=== PATIENT | female | born 2000 | race Caucasian/White ===

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

== ENCOUNTER → 2019-01-06 16:07 | Outpatient (CLI) | payer MEDICAID, SELFPAY ==
[2019-01-09 13:19] LABS: Neisseria gonorrhoeae, NAA Negative (Negative)
== END ==
PROVIDERS: Visit Provider Nurse Practitioner Obstetrics & Gynecology
DX: Z34.90 Encounter for supervision of normal pregnancy, unspecified, unspecified trimester (principal)
CPT/HCPCS: 87491; 87591

== ENCOUNTER → 2019-01-09 14:17 | Outpatient (CLI) | payer MEDICAID, SELFPAY ==
[2019-01-09 14:48] LABS: Basophils % 0.3 % (0.1-2.0); Eosinophils # 0.1 K/mm3 (0.0-0.4); Eosinophils % 1.1 % (0.1-12.0); Hematocrit 38.5 % (37.0-47.0); Hemoglobin 12.4 g/dL (12.2-16.2); Lymphocytes # 1.5 K/mm3 (0.7-4.5); Lymphocytes % 16.6 % (10-50); Mean Corpuscular HGB Conc 32.3 g/dL (31.8-35.4); Mean Corpuscular Hemoglobin 27.7 pg (27.0-31.2); Mean Corpuscular Volume 85.7 fl (81-99); Mean Platelet Volume 7.7 fl (7.4-10.4); Monocytes # 0.5 K/mm3 (0.1-1.0); Monocytes % 5.8 % (1.7-9.3); Neutrophils # 6.9 K/mm3 (1.8-7.8); Neutrophils % 76.3 % (37.0-80.0); Platelet Count 278 K/mm3 (142-424); Red Cell Distribution Width 12.6 % (11.5-17.5); White Blood Count 9.1 K/mm3 (4.5-13.0)
[2019-01-11 17:10] LABS: Rapid Plasma Reagin Ab Titer Non Reactive (NonRea<1:1)
[2019-01-11 18:08] LABS: HIV Screen 4th Generation wRfx Non Reactive (Non Reactive)
[2019-01-14 07:09] LABS: Hepatitis B Surface Antigen Negative (Negative); Hepatitis C Antibody <0.1 s/co ratio (0.0-0.9)
[2019-01-14 07:11] LABS: Rubella Antibodies, IgG 1.82 index (Immune >0.99)
== END ==
PROVIDERS: Visit Provider Nurse Practitioner Obstetrics & Gynecology
DX: Z34.90 Encounter for supervision of normal pregnancy, unspecified, unspecified trimester (principal)
CPT/HCPCS: 36415; 85025; 86592; 86703; 86762; 86850; 87340; 87380; G0432

== ENCOUNTER → 2019-01-12 14:05 | Outpatient (CLI) | payer MEDICAID, SELFPAY ==
--- NOTE | 2019-01-12 14:09 | US_ITS ---
US OB transvaginal HISTORY: ITS.REASON: US OB Dates ORDERING PHYSICIAN: Aron Hill MD PATIENT AGE: 18 years COMPARISON: None FINDINGS: An intrauterine gestational sac is present with a pole with a crown-rump length of 2.03cm correlating to gestational age of 8w5d. heart tones are present with an FHR of 174 bpm's. Yolk sac is noted. The amnion and chorion have not yet fused. Adnexa: 4 cm right corpus luteum cyst. IMPRESSION: Live intrauterine gestation at 8 weeks 5 days as described above. Estimated due date by Ultrasound is 08/19/2019 4 cm right corpus luteum cyst
== END ==
PROVIDERS: PCP Internal Medicine Adolescent Medicine; Visit Provider Nurse Practitioner Obstetrics & Gynecology
DX: O26.841 Uterine size-date discrepancy, first trimester (principal)
CPT/HCPCS: 76817

== ENCOUNTER → 2019-04-01 13:06 | Outpatient (CLI) | payer MEDICAID, SELFPAY ==
--- NOTE | 2019-04-01 13:08 | US_ITS ---
PROCEDURE: US OB /MATERNAL DETAIL CLINICAL INDICATION: US OB Complete COMPARISON: OBTV US OB transvaginal from 01/12/2019 FINDINGS: Single viable intrauterine gestation. Cephalic position. Placenta: Posteriorplacenta grade 1. There is average amount fluid. The cervix appears satisfactory. Closed and measuring 4 cm in length. Complete survey performed and was unremarkable on the submitted images as in PACS. No discrete anomalies identified on survey imaging by technologist. Active fetus. Three-vessel cord with satisfactory umbilical cord insertion. 4- chamber heart noted. Survey of brain & ventricles Unremarkable. Face and neck survey unremarkable. Diaphragm and chest views unremarkable. Abdomen: Both kidneys noted and unremarkable. Stomach noted and satisfactory. Spine: Survey of the spine satisfactory with no anomalies identified nor imaged. Both arms and legs noted. Amniotic Fluid: Adequate. Maternal adnexa: No significant findings. Measurements: Average ultrasound age 20 week. Gestational Age 20 week Estimated due date by ultrasound age 0208/19/2019. Estimated weight 322.1 ggrams. BPD = 20 weeks 2 days OFD = 20 weeks 0 days HC = 19 weeks 3 days AC = 20 weeks 0 days FL = 20 weeks 1 day Growth Percentile= 34 percent% Heart Rate = 144 bpm Cerebellum = 20 weeks 0 days Humerus = 19 weeks 5 days HC/AC is 1.13 CI is 0.82 FL/BPD is 0.68 FL/AC is 0.22 IMPRESSION: Single live intrauterine gestation which is in cephalic presentation with an average ultrasound age of 20 weeks and 0 days. All parameters correlate with no obvious anomalies. Please see above for detail. Dictated by: Franklyn Yuen MD 04/02/2019 06:07 Electronically signed by Franklyn Yuen MD in [place] 04/02/2019 06:07
== END ==
PROVIDERS: PCP Internal Medicine Adolescent Medicine; Visit Provider Nurse Practitioner Obstetrics & Gynecology
DX: Z36.0 Encounter for antenatal screening for chromosomal anomalies (principal)
CPT/HCPCS: 76811

== ENCOUNTER → 2019-04-08 16:02 | Outpatient (CLI) | payer SELFPAY ==
[2019-04-08 21:46] LABS: Alanine Aminotransferase 24 U/L (12-78); Albumin/Globulin Ratio 0.9 (1.1-1.8); Alkaline Phosphatase 56 U/L (46-116); Anion Gap 16.3 mEq/L (5-15); Aspartate Amino Transferase 15 U/L (15-37); Bilirubin,Total 0.2 mg/dL (0.2-1.0); Blood Urea Nitrogen 14 mg/dL (7-18); Calcium 8.1 mg/dL (8.5-10.1); Carbon Dioxide 23 mmol/L (21.0-32.0); Chloride 102 mmol/L (98-107); Creatinine,Serum 0.55 mg/dL (0.55-1.02); Estimated Glomerular Filt Rate 142 ml/min (>60); GFR (African American) 172 ML/MIN (>60); Globulin 3.5 gm/dl (1.3-3.2); Glucose 107 mg/dL (74-106); Potassium 4.3 mmoL/L (3.5-5.1); Sodium 137 mmol/L (136-145); Total Protein,Serum 6.5 gm/dL (6.4-8.2)
== END ==
PROVIDERS: Visit Provider Nurse Practitioner Obstetrics & Gynecology
DX: Z34.90 Encounter for supervision of normal pregnancy, unspecified, unspecified trimester (principal); Z3A.21 21 weeks gestation of pregnancy
CPT/HCPCS: 36415; 80053

== ENCOUNTER 2019-05-12 14:21 | Outpatient (CLI) | payer OTHER, SELFPAY ==
[2019-05-12 14:29] VITALS: BMI 26.2
[2019-05-12 14:43] VITALS: BP 128/75; PULSE 110; RESP 18; O2SAT 99; BMI 26.2
[2019-05-12 15:14] LABS: Appearance,Urine SL CLOUDY (Clear); Bilirubin,Urine Negative (Negative); Blood, Urine Negative (Negative); Color,Urine YELLOW (Yellow); Glucose,Urine (UA) TRACE (Negative); Ketones,Urine Negative (Negative); Leukocyte Esterase,Urine Negative (Negative); Microscopic, Urine URINE MICROSCOPIC (MICROSCOPIC); Nitrate,Urine POSITIVE (Negative); Protein,Urine Negative (Negative); Specific Gravity, Urine 1.025 (1.005-1.030); Urobilinogen,Urine 0.2 EU/dl (0.2)
[2019-05-12 15:32] LABS: Bacteria,Urine 4+ /lpf
[2019-05-12 15:51] LABS: Amphetamine/Metha Screen,Urine Negative ng/mL (<1000); Barbiturates Screen,Urine Negative ng/mL (<200); Benzodiazepines Screen,Urine Negative ng/mL (<200); Cannabinoid Screen,Urine Negative ng/mL (<50); Cocaine Screen,Urine Negative ng/mL (<300); Methadone Screen,Urine Negative ng/mL (<300); Opiate Screen,Urine Negative ng/mL (<300); Phencyclidine Screen,Urine Negative ng/mL (<25)
== END 2019-05-12 15:45 | disposition home or self-care (01) ==
LOC: OBOUT 14:23 → OB 14:24
PROVIDERS: PCP Internal Medicine Adolescent Medicine; Visit Provider Nurse Practitioner Obstetrics & Gynecology
DX: O26.892 Other specified pregnancy related conditions, second trimester (principal); Z3A.26 26 weeks gestation of pregnancy; R10.2 Pelvic and perineal pain
CPT/HCPCS: 59025; 80305; 81001; 87086; 87088; 87186

== ENCOUNTER → 2019-05-30 08:42 | Outpatient (CLI) | payer OTHER, SELFPAY ==
[2019-05-30 09:19] LABS: Glucose,Fasting 118 mg/dL (60-105)
[2019-05-30 10:54] LABS: Glucose 1 Hour 148 mg/dL (74-106)
== END ==
PROVIDERS: Visit Provider Nurse Practitioner Obstetrics & Gynecology
DX: Z34.90 Encounter for supervision of normal pregnancy, unspecified, unspecified trimester (principal)
CPT/HCPCS: 36415; 82951

== ENCOUNTER → 2019-06-11 09:00 | Outpatient (CLI) | payer OTHER, SELFPAY ==
[2019-06-11 09:29] LABS: Glucose,Fasting 90 mg/dL (60-105)
[2019-06-11 11:09] LABS: Glucose 1 Hour 177 mg/dL (74-106)
[2019-06-11 12:20] LABS: Glucose 2 Hour 151 mg/dL (74-106)
[2019-06-11 13:02] LABS: Glucose 3 Hour 116 mg/dL (74-106)
== END ==
PROVIDERS: Visit Provider Nurse Practitioner Obstetrics & Gynecology
DX: O99.814 Abnormal glucose complicating childbirth (principal)
CPT/HCPCS: 36415; 82951

== ENCOUNTER → 2019-06-22 16:19 | Outpatient (CLI) | payer OTHER, SELFPAY | PROVIDERS: Visit Provider Nurse Practitioner Obstetrics & Gynecology | DX: N39.0 Urinary tract infection, site not specified (principal) | CPT/HCPCS: 87086; 87088; 87186 ==

== ENCOUNTER 2019-07-06 11:58 | Outpatient (CLI) | payer OTHER, SELFPAY ==
[2019-07-06 12:08] VITALS: BP 112/71; PULSE 114; RESP 18; TEMP 36.6; O2SAT 99; BMI 27.1
[2019-07-06 12:36] LABS: Microscopic, Urine URINE MICROSCOPIC (MICROSCOPIC)
[2019-07-06 12:44] LABS: Appearance,Urine CLEAR (Clear); Bilirubin,Urine Negative (Negative); Blood, Urine 2+ (Negative); Color,Urine YELLOW (Yellow); Glucose,Urine (UA) Negative (Negative); Ketones,Urine Negative (Negative); Leukocyte Esterase,Urine Negative (Negative); Nitrate,Urine Negative (Negative); PH,Urine 6.5 (5.0-8.5); Protein,Urine 1+ (Negative); Specific Gravity, Urine 1.025 (1.005-1.030)
[2019-07-06 12:52] LABS: Amphetamine/Metha Screen,Urine Negative ng/mL (<1000); Barbiturates Screen,Urine Negative ng/mL (<200); Benzodiazepines Screen,Urine Negative ng/mL (<200); Cannabinoid Screen,Urine Negative ng/mL (<50); Cocaine Screen,Urine Negative ng/mL (<300); Methadone Screen,Urine Negative ng/mL (<300); Opiate Screen,Urine Negative ng/mL (<300); Phencyclidine Screen,Urine Negative ng/mL (<25)
[2019-07-06 13:11] LABS: Bacteria,Urine 4+ /lpf
== END 2019-07-06 13:45 | disposition home or self-care (01) ==
LOC: OBOUT 11:59 → OB 12:00
PROVIDERS: PCP Internal Medicine Adolescent Medicine; Visit Provider Nurse Practitioner Obstetrics & Gynecology
DX: O36.8130 Decreased fetal movements, third trimester, not applicable or unspecified (principal); Z3A.33 33 weeks gestation of pregnancy; R10.9 Unspecified abdominal pain; R19.7 Diarrhea, unspecified
CPT/HCPCS: 59025; 80305; 81001; 87086; 87088; 87186; 96360

== ENCOUNTER → 2019-07-13 17:44 | Outpatient (CLI) | payer OTHER, SELFPAY | PROVIDERS: Visit Provider Nurse Practitioner Obstetrics & Gynecology | DX: O23.43 Unspecified infection of urinary tract in pregnancy, third trimester (principal) | CPT/HCPCS: 87086; 87088; 87186 ==

== ENCOUNTER 2019-07-20 19:36 | Outpatient (CLI) | payer OTHER, SELFPAY ==
[2019-07-20 19:43] VITALS: BP 132/74; PULSE 118; RESP 18; TEMP 36.9; O2SAT 99; BMI 26.5
[2019-07-20 20:32] LABS: Microscopic, Urine URINE MICROSCOPIC (MICROSCOPIC)
[2019-07-20 20:42] LABS: Appearance,Urine CLEAR (Clear); Bilirubin,Urine Negative (Negative); Blood, Urine 2+ (Negative); Color,Urine YELLOW (Yellow); Glucose,Urine (UA) 2+ (Negative); Ketones,Urine Negative (Negative); Leukocyte Esterase,Urine 1+ (Negative); Nitrate,Urine Negative (Negative); Protein,Urine 2+ (Negative); Specific Gravity, Urine 1.015 (1.005-1.030)
[2019-07-20 20:51] LABS: Amphetamine/Metha Screen,Urine Negative ng/mL (<1000); Barbiturates Screen,Urine Negative ng/mL (<200); Benzodiazepines Screen,Urine Negative ng/mL (<200); Cannabinoid Screen,Urine Negative ng/mL (<50); Cocaine Screen,Urine Negative ng/mL (<300); Methadone Screen,Urine Negative ng/mL (<300); Opiate Screen,Urine Negative ng/mL (<300); Phencyclidine Screen,Urine Negative ng/mL (<25)
[2019-07-20 20:59] LABS: Bacteria,Urine Trace /lpf; RBC,Urine Occasional #/hpf (0-3); Squamous Epithelial Cell,Urine 20-50 #/hpf (0-5)
== END 2019-07-20 21:02 | disposition home or self-care (01) ==
LOC: OBOUT 19:40 → OB 19:40
PROVIDERS: PCP Nurse Practitioner Obstetrics & Gynecology; Visit Provider Obstetrics & Gynecology
DX: O47.03 False labor before 37 completed weeks of gestation, third trimester (principal); Z3A.35 35 weeks gestation of pregnancy
CPT/HCPCS: 59025; 80305; 81001; 87086; 87088; 87186; G0463

== ENCOUNTER → 2019-07-22 17:16 | Outpatient (CLI) | payer OTHER, SELFPAY | PROVIDERS: Visit Provider Nurse Practitioner Obstetrics & Gynecology | DX: N39.0 Urinary tract infection, site not specified (principal); Z3A.36 36 weeks gestation of pregnancy; Z34.90 Encounter for supervision of normal pregnancy, unspecified, unspecified trimester | CPT/HCPCS: 86403; 87086; 87088; 87186 ==

== ENCOUNTER 2019-07-22 21:12 | Outpatient (CLI) | payer OTHER, SELFPAY ==
[2019-07-22 21:36] VITALS: BP 118/76; PULSE 115; RESP 18; TEMP 37.1; O2SAT 96; BMI 26.5
[2019-07-22 22:04] LABS: Microscopic, Urine URINE MICROSCOPIC (MICROSCOPIC)
[2019-07-22 22:05] LABS: Appearance,Urine CLEAR (Clear); Bilirubin,Urine Negative (Negative); Blood, Urine TRACE-I (Negative); Color,Urine YELLOW (Yellow); Glucose,Urine (UA) Negative (Negative); Ketones,Urine 2+ (Negative); Leukocyte Esterase,Urine 2+ (Negative); Nitrate,Urine Negative (Negative); Protein,Urine 1+ (Negative); Specific Gravity, Urine 1.025 (1.005-1.030)
[2019-07-22 22:12] LABS: Bacteria,Urine 4+ /lpf
[2019-07-22 22:14] LABS: Amphetamine/Metha Screen,Urine Negative ng/mL (<1000); Barbiturates Screen,Urine Negative ng/mL (<200); Benzodiazepines Screen,Urine Negative ng/mL (<200); Cannabinoid Screen,Urine Negative ng/mL (<50); Cocaine Screen,Urine Negative ng/mL (<300); Methadone Screen,Urine Negative ng/mL (<300); Opiate Screen,Urine Negative ng/mL (<300); Phencyclidine Screen,Urine Negative ng/mL (<25)
[2019-07-22 22:23] LABS: Strep Scrn Group A (Rapid) Negative (Negative)
== END 2019-07-22 23:44 | disposition home or self-care (01) ==
LOC: OBOUT 21:14 → OB 21:14
PROVIDERS: PCP Nurse Practitioner Obstetrics & Gynecology; Visit Provider Obstetrics & Gynecology
DX: O26.893 Other specified pregnancy related conditions, third trimester (principal); Z3A.36 36 weeks gestation of pregnancy; R50.9 Fever, unspecified
CPT/HCPCS: 59025; 80305; 81001; 87275; 87276; 87430; 96365; 96367; G0463

== ENCOUNTER → 2019-08-03 12:41 | Outpatient (CLI) | payer OTHER, SELFPAY ==
--- NOTE | 2019-08-03 12:45 | US_ITS ---
PROCEDURE: US OB BIOPHYSICAL PROFILE CLINICAL INDICATION: US OB BPP Growth- Breech TECHNIQUE: FINDINGS: The following parameters are obtained: Average ultrasound age is Average 37weeks 5days Estimated due date by ultrasound is 08/19/2019. Estimated weight is 3,304g. This is 60 a percentile BPD: 37 weeks 6 days OFD: 37 weeks 6 days HC: 36 weeks 6 days AC: 38 weeks 0 days FL: 38 weeks 0 days heart rate: 133bpm bpm. HC/AC: 0.95 Cephalic index: 0.82 FL/BPD: 0.8 FL/AC: 0.22 Amniotic fluid index: 17.28cm Qualitative AFV: 2 breathing movements: 2 Gross body movements: 2 Tone: 2 Biophysical profile score: 8 No obvious anomalies evident. Placenta: Posterior and grade 1 IMPRESSION: There is a single live fetus which is in breech presentation with an average ultrasound age of 37 weeks 5 days. Estimated weight is 3304 g which is 60 a percentile. Biophysical profile is 8 of 8 with normal amniotic fluid index. Please see above for detail Dictated by: Franklyn Yuen MD 08/03/2019 15:28 Electronically signed by Franklyn Yuen MD in [place] 08/03/2019 15:28
== END ==
PROVIDERS: PCP Internal Medicine Adolescent Medicine; Visit Provider Nurse Practitioner Obstetrics & Gynecology
DX: O32.1XX0 Maternal care for breech presentation, not applicable or unspecified (principal)
CPT/HCPCS: 76816; 76819

== ENCOUNTER 2019-08-13 05:31 | Inpatient (IN) ==
[2019-08-13 06:10] LABS: Microscopic, Urine URINE MICROSCOPIC (MICROSCOPIC)
[2019-08-13 06:16] LABS: Basophils % 0.2 % (0.1-2.0); Eosinophils # 0.1 K/mm3 (0.0-0.4); Eosinophils % 1.1 % (0.1-12.0); Hematocrit 27.3 % (37.0-47.0); Lymphocytes # 1.9 K/mm3 (0.7-4.5); Lymphocytes % 23.6 % (10-50); Mean Corpuscular Volume 72.7 fl (81-99); Monocytes # 0.7 K/mm3 (0.1-1.0); Neutrophils # 5.5 K/mm3 (1.8-7.8); Neutrophils % 67.2 % (37.0-80.0); Platelet Count 229 K/mm3 (142-424); Red Blood Count 3.76 M/mm3 (4.20-5.40); Red Cell Distribution Width 15.9 % (11.5-17.5); White Blood Count 8.2 K/mm3 (4.5-13.0)
[2019-08-13 06:19] LABS: Hemoglobin 7.9 g/dL (12.2-16.2)
[2019-08-13 06:24] LABS: Anion Gap 14.7 mEq/L (5-15); Calcium 8.5 mg/dL (8.5-10.1)
[2019-08-13 06:25] LABS: Amphetamine/Metha Screen,Urine Negative ng/mL (<1000); Barbiturates Screen,Urine Negative ng/mL (<200); Benzodiazepines Screen,Urine Negative ng/mL (<200); Cannabinoid Screen,Urine Negative ng/mL (<50); Cocaine Screen,Urine Negative ng/mL (<300); Methadone Screen,Urine Negative ng/mL (<300); Opiate Screen,Urine Negative ng/mL (<300); Phencyclidine Screen,Urine Negative ng/mL (<25)
--- NOTE | 2019-08-13 07:11 | Progress Note ---
[facility] Anesthesia Checklist - Patient Identification Patient Identification: Arm Band, Verbal (Name & ) - Structural Data Admitted From: Home Planned Operative Procedure/s: c section Consent for Planned Operative Procedure(s) Verified: Yes - NPO Status Verified Time NPO: 00:00 - Additional verifications Patient : No Anesthesia Reactions: No Hx Blood Transfusions: No Blood Transfusion Reaction: No Cephalosporin Allergy: No Previous Colonoscopy: No - Cardiovascular Assessment Heart Sounds: S1 & S2 Pulse Strength: Baseline Pulse Rhythm: Regular Peripheral Edema: No - Airway Assessment C-Spine Mobility Assessed: Yes TMJ Mobility Assessed: Yes Dentition: Good Dentition - Neurological Assessment Level of Consciousness: Awake, Alert, Appropriate Hx Seizures: No Numbness or tingling in extremities: No - Anesthesia Plan Anesthesia Risk discussed: Yes Anesthesia Plan: Verified ASA Class: II Anesthesia Type: Spinal [facility] History I have reviewed the patient's past medical history: Yes *Have you ever received a pneumonia vaccine?: No *Have you received a flu vaccine this season?: Yes Anesthesia experience/problems:: none Other Surgeries: Yes: No Previous Surgery. No: Amputation: No Fractures: No - *Social History Smoking Status: Never smoker Alcohol Intake: never Substance Use Type: denies use *Occupational Status:: unemployed *Travel in the last 8 weeks: None Family Hx:: No significant family history Para: 0
[2019-08-13 07:31] LABS: Appearance,Urine CLEAR (Clear); Bilirubin,Urine Negative (Negative); Blood, Urine Negative (Negative); Color,Urine YELLOW (Yellow); Glucose,Urine (UA) Negative (Negative); Ketones,Urine Negative (Negative); Leukocyte Esterase,Urine Negative (Negative); Protein,Urine Negative (Negative); Specific Gravity, Urine 1.025 (1.005-1.030); Urobilinogen,Urine 0.2 EU/dl (0.2)
[2019-08-13 07:36] LABS: Bacteria,Urine Trace /lpf; RBC,Urine Occasional #/hpf (0-3); WBC,Urine Occasional #/hpf (0-3)
--- NOTE | 2019-08-13 08:38 | Operative Note ---
Date of procedure: 08/13/19 Pre-op Diagnosis:: Term , breech presentation Post-op Diagnosis:: Term , breech presentation, uterine atony Procedure performed:: Primary lower segment transverse section and B-colby suture Surgeon:: Aron Hill MD ORACLE APPLICATION CONSULTANT:: Evelio He Anesthesia: spinal Estimated blood loss (mL): 1,000 Clinical Note:: She is a 19-year-old 1 para 0 at 39 2 weeks gestational age. She has been followed for a breech presentation and as result of that was offered primary lower segment transverse section at term. Operative findings:: She delivered a liveborn male child at 7:57 AM on the morning of August 13, 2019. Baby had Apgars of 9 at 1 minute 9 at 5 minutes. He was in the cody breech presentation. Ovaries and tubes were normal. Her uterus is quite boggy post delivery and we ended up doing a B. Colby suture. Operative note:: She was taken to the operating room where spinal anesthesia was found be adequate. She was prepped and draped in normal sterile fashion in the supine position with a leftward tilt. A Lopez catheter was in the bladder. A Pfannenstiel skin incision was made with knife then carried through to the underlying layer of fascia with cautery. The fascia was opened in the midline with cautery and extended laterally using Montgomery scissors. Marisol clamps were applied to the superior aspect of the fascial incision which was tented up and the underlying rectus muscles dissected off using cautery. The Marisol clamps were then applied to the inferior aspect of the fascial incision which in a similar fashion was tented up and the underlying rectus muscles dissected off using cautery. The rectus muscles were then in the midline, the peritoneum identified, and entered sharply with Metzenbaum scissors. This incision was then extended superiorly and inferiorly with cautery. We had good visualization of the bladder inferiorly. The bladder peritoneum was then opened in the midline and extended laterally using Metzenbaum scissors. A bladder flap was created digitally. Transverse incision was made through the uterine muscle to the amnion. This incision was then extended laterally using fingers traction. The amnion was entered sharply with knife. There was clear amniotic fluid. The infant's breech was then delivered atraumatically. This was followed by the shoulders and the rest of the infant's body atraumatically. The oropharynx and nasopharynx were bulb suctioned. The infant was then handed off to Dr. Rocha who assigned Apgars of 9 at 1 minute and 9 at 5 minutes. We then obtained cord blood as well as cord pH. The pH was not available due to clotting of the blood in the tube. Using gentle traction on the cord and countertraction on the fundus I was able to easily deliver the placenta intact. It had a normal three-vessel cord. The uterus was then cleared of clots and debris . The uterine incision was then closed using running 0 Vicryl suture in a locked fashion. A second layer of the same suture was used to imbricate the first layer. There were multiple areas of bleeding along the lower uterine incision and interrupted [id number]-[id number] sutures were used here to obtain excellent hemostasis. The bladder peritoneum was then closed using running 2-0 Vicryl suture in a locked fashion. The gutters and cul-de-sac were then cleared of clots and debris . The uterus is found to be quite boggy so we elected to perform a B-colby suture. Using a #1 Vicryl suture with a large needle I took a bite anterior. This was then passed over top of the uterus and 2 bites were taken posteriorly. It was then passed again over anteriorly and another bite was taken anteriorly. The suture was then cinched down and tied. Once again hemostasis was assured. The gutters and cul-de-sac were then cleared of clots and debris. The uterus was then returned to the abdominal cavity. The peritoneum was grasped with Ping clamps and closed using running 2-0 Vicryl suture. The rectus muscles were then reapproximated using running 0 Vicryl suture. The fascia was closed using running #1 Vicryl suture. The subcutaneous tissues were then irrigated with warm water followed by closure Frederic's fascia using running 2-0 Monocryl suture. The skin was closed with cherrie. I then cleaned the skin with Hibiclens. Sterile dressings were applied. She tolerated the procedure well and was taken to the recovery room in excellent condition. All sponges minute and needle counts were correct. Estimate a blood loss was approximately 1000 mL. Her hemoglobin prior to surgery was 7.9 and as a result of that we will go ahead and transfuse her 2 units of blood in the recovery room since she had significant blood loss. Condition: stable Disposition: PACU Specimens:: Products of conception Complications:: Uterine atony
--- NOTE | 2019-08-13 08:45 | Progress Note ---
[facility] Anesthesia Record Part I Intake, IV Amount: 2,000 Estimated blood loss (mL): 1,000 Urine output (mL): 200 Blood Products used (#): none Blood Pressure: 128/76 SaO2: 100 Pulse Rate: 68 Respiratory Rate: 20 Temperature: 97.6 F Patient is:: Awake, Stable Stable to PACU at:: 08:39
--- NOTE | 2019-08-13 10:26 | Progress Note ---
[facility] Anesthesia Record Part II Discharge Time: 09:09 Destination: Obstetric Gynecology Dept PACU nurse assessment reviewed?: Yes Patient Condition:: Good Anesthesia Complications:: None Swallowing reflex intact?: Yes Cyanosis?: No Blood Pressure: 146/83 Pulse Rate: 70 Temperature: 97.8 F Mental Status: Alert & Oriented Pain level:: 3 Nausea and/or vomitting:: None Intake, IV Amount: 250
[2019-08-13 13:24] LABS: Hematocrit 28.5 % (37.0-47.0)
[2019-08-13 13:30] LABS: Hemoglobin 8.8 g/dL (12.2-16.2)
[2019-08-13 16:24] LABS: Hematocrit 28.4 % (37.0-47.0); Hemoglobin 8.8 g/dL (12.2-16.2)
[2019-08-14 07:27] LABS: Basophils % 0.1 % (0.1-2.0); Eosinophils # 0.1 K/mm3 (0.0-0.4); Eosinophils % 0.4 % (0.1-12.0); Hematocrit 28.8 % (37.0-47.0); Hemoglobin 8.7 g/dL (12.2-16.2); Lymphocytes # 1.8 K/mm3 (0.7-4.5); Lymphocytes % 12.6 % (10-50); Mean Corpuscular HGB Conc 30.2 g/dL (31.8-35.4); Mean Corpuscular Volume 74.9 fl (81-99); Mean Platelet Volume 10.1 fl (7.4-10.4); Monocytes # 1.2 K/mm3 (0.1-1.0); Monocytes % 8.2 % (1.7-9.3); Neutrophils % 78.6 % (37.0-80.0); Platelet Count 181 K/mm3 (142-424); Red Blood Count 3.84 M/mm3 (4.20-5.40); Red Cell Distribution Width 16.8 % (11.5-17.5)
--- NOTE | 2019-08-14 11:57 | Progress Note ---
Internal Medicine - PN: Subj *Date: 08/14/19 *Time: 11:53 Interval history: She is doing well this morning. She received 2 units of blood yesterday. Her hemoglobin has improved significantly. She denies any shortness of breath or dizziness. She is breast-feeding. Her lochia is normal. Exam Vital signs and Labs for Last 24 Hours: Temp Pulse Resp BP Pulse Ox 98.1 F 75 18 128/80 99 08/13/19 16:30 08/13/19 16:30 08/13/19 16:30 08/13/19 16:30 08/13/19 16:30 Laboratory Results - last 24 hr 08/13/19 05:55: Crossmatch ([facility]) See Detail 08/13/19 13:13: Hgb 8.8 L D, Hct 28.5 L 08/13/19 16:05: Hgb 8.8 L, Hct 28.4 L 08/14/19 07:20: WBC 14.0 H D, RBC 3.84 L, Hgb 8.7 L, Hct 28.8 L, MCV 74.9 L, MCH 22.6 L, MCHC 30.2 L, RDW 16.8, Plt Count 181, MPV 10.1, Neut % (Auto) 78.6, Ly mph % (Auto) 12.6, [place] % (Auto) 8.2, Eos % (Auto) 0.4, Baso % (Auto) 0.1, Neut # (Auto) 11.0 H, Lymph # (Auto) 1.8, [place] # (Auto) 1.2 H, Eos # (Auto) 0.1, Baso # (Auto) 0.0 I & O for Last 24 hours: Intake & Output 08/11/19 08/12/19 08/13/19 08/14/19 11:59 11:59 11:59 11:59 Intake Total 2500 / 2500 Output Total 200 / 200 600 / 600 Balance 2300 / 2300 -600 / -600 Weight 158 lb - *Routine HEENT Exam Head: Present: normocephalic Eye: Present: EOMI, PERRL ENT: Present: mucous membranes moist Assessment and Plan (1) Delivery by section for breech presentation Current visit: Yes Status: Acute Category: Medical Code(s): O32.1XX0 - Maternal care for breech presentation, not applicable or unspecified (2) Anemia, antepartum Current visit: Yes Status: Acute Category: Medical Code(s): O99.019 - Anemia complicating , unspecified trimester (3) Uterine atony Current visit: Yes Status: Acute Category: Medical Code(s): O62.2 - Other uterine inertia - Assessment and plan all Dx Assessment and Plan for all problems:: She continues to do well. We will send her home in 48 hours. She is doing well. She will see Dr. Rob over the next couple of days since I am going to be out of town. We will plan her discharge for 48 hours from now.
--- NOTE | 2019-08-14 12:00 | Discharge Summary ---
General - General Admission date:: 08/13/19 Discharge date: 08/16/19 HPI HPI: She is a 19-year-old 1 para 0 at 39 weeks gestational age. She was brought in for section for breech presentation. Hospital Course Hospital Course: On August 13, 2019 she underwent a primary lower segment transverse section for cody breech presentation. She delivered a liveborn male child with Apgars of 9 at 1 minute and 9 at 5 minutes. He weighed 8 pounds 7 ounces and was 19-1/2 inches long. He was in the cody breech presentation. Prior to surgery it was noted that her hemoglobin was only 7.9. She has not been taking her iron tablets throughout the . As result of that we elected to type and cross her for 2 units. Intraoperatively she had significant blood loss and we elected to give HER-2 units of blood postoperatively. She has now raised her hemoglobin to 8.7. She feels well. She is breast-feeding. She will be discharged home to follow-up with me in approximately 2 weeks time. She was given a prescription for ferrous sulfate to take twice daily and a prescription for Percocet 5/325 number 20 tablets. She will continue with her breast-feeding. Her condition on discharge is stable improved. Objective Vital signs: Temp Pulse Resp BP Pulse Ox 98.1 F 75 18 128/80 99 08/13/19 16:30 08/13/19 16:30 08/13/19 16:30 08/13/19 16:30 08/13/19 16:30 no acute distress - *Routine HEENT Exam Head: Present: normocephalic Results Labs on day of discharge: Labs from last 24 hours 08/14/19 08/13/19 08/13/19 07:20 16:05 13:13 WBC 14.0 H D RBC 3.84 L Hgb 8.7 L 8.8 L 8.8 L D Hct 28.8 L 28.4 L 28.5 L MCV 74.9 L MCH 22.6 L MCHC 30.2 L RDW 16.8 Plt Count 181 MPV 10.1 Neut % (Auto) 78.6 Lymph % (Auto) 12.6 [place] % (Auto) 8.2 Eos % (Auto) 0.4 Baso % (Auto) 0.1 Neut # (Auto) 11.0 H Lymph # (Auto) 1.8 [place] # (Auto) 1.2 H Eos # (Auto) 0.1 Baso # (Auto) 0.0 Crossmatch ([facility]) 08/13/19 05:55 WBC RBC Hgb Hct MCV MCH MCHC RDW Plt Count MPV Neut % (Auto) Lymph % (Auto) [place] % (Auto) Eos % (Auto) Baso % (Auto) Neut # (Auto) Lymph # (Auto) [place] # (Auto) Eos # (Auto) Baso # (Auto) Crossmatch ([facility]) See Detail DS: Diagnosis - Discharge Diagnosis (1) Delivery by section for breech presentation Status: Acute (2) Anemia, antepartum Status: Acute (3) Uterine atony Status: Acute Discharge Plan - Patient Discharge Instructions ACTIVITY: No heavy lifting DIET: continue same diet - Follow up Plan Disposition: Home, Self-Fpc Medications: Home Medications Medication Instructions Recorded Confirmed Type Famotidine 10 mg PO DAILYP PRN 08/13/19 08/13/19 History Ferrous Sulfate [Ferrous Sulfate 325 mg PO BID #60 tab 08/14/19 Rx 325mg Tablet] Oxycodone HCl/Acetaminophen 1 tab PO Q4H PRN #20 tablet 08/14/19 Rx [Percocet 5/325mg tablet] Prescriptions/Medication Reconciliation: New Oxycodone HCl/Acetaminophen [Percocet 5/325mg tablet] 1 tab PO Q4H PRN #20 tablet PRN Reason: Severe Pain Ferrous Sulfate [Ferrous Sulfate 325mg Tablet] 325 mg PO BID #60 tab Continued Famotidine 10 mg PO DAILYP PRN PRN Reason: Acid Reflux - Problem Reconciliation Problems Reviewed?: Yes
--- NOTE | 2019-08-15 09:41 | Progress Note ---
Internal Medicine - PN: Subj *Date: 08/15/19 *Time: 09:38 Interval history: POD #2 primary CS Delivery complicated by severe preoperative anemia and EBL 1000 Transfused 2 units PRBCs and feeling well Post-transfusion Hgb 8.7 Tolerating regular diet, ambulating and voiding without difficulty No unusual complaints Exam Vital signs and Labs for Last 24 Hours: Temp Pulse Resp BP Pulse Ox 98.1 F 76 18 116/75 98 08/14/19 12:00 08/14/19 12:00 08/14/19 12:00 08/14/19 12:00 08/14/19 12:00 I & O for Last 24 hours: Intake & Output 08/12/19 08/13/19 08/14/19 08/15/19 11:59 11:59 11:59 11:59 Intake Total 2500 / 2500 Output Total 200 / 200 600 / 600 Balance 2300 / 2300 -600 / -600 Weight 158 lb Narrative: CONSTITUTIONAL: no acute distress HEENT: mucous membranes moist PULMONARY: breathing unlabored without audible wheezes CV: no tachycardia or visible JVD; normal LE peripheral pulses ABD: soft, ND; appropriately tender but no rebound/guarding : fundus firm at/below umbilicus SKIN: incision well approximated with no drainage, erythema or induration EXT: 1+ edema LEs NEURO: alert/oriented, no altered mental status PSYCH: appropriate mood and demeanor without anxiety/depression Assessment and Plan (1) Delivery by section for breech presentation Current visit: Yes Status: Acute Category: Medical Code(s): O32.1XX0 - Maternal care for breech presentation, not applicable or unspecified (2) Anemia, antepartum Current visit: Yes Status: Acute Category: Medical Code(s): O99.019 - Anemia complicating , unspecified trimester (3) Uterine atony Current visit: Yes Status: Acute Category: Medical Code(s): O62.2 - Other uterine inertia - Assessment and plan all Dx Assessment and Plan for all problems:: Continue routine postop/ care Continue FeSO4 supplementation Anticipate discharge home tomorrow
--- NOTE | 2019-08-15 12:33 | Pharmacy Consult Notes ---
[facility] Pharmacy VTE Monitoring - Patient Demographics Admission date: 08/13/19 Report Date: 08/15/19 Time: 12:33 Allergies/Adverse Reactions: Patient Allergies chlorpheniramine Allergy (Mild, Verified 08/13/19 06:33) dextromethorphan Allergy (Mild, Verified 08/13/19 06:33) phenylephrine Allergy (Mild, Verified 08/13/19 06:33) Height: 1.6 m Weight: 71.668 kg Patient Problems: Current Active Problems Delivery by section for breech presentation (Acute) Anemia, antepartum (Acute) Uterine atony (Acute) - VTE Risk Labs: VTE Related Lab Results Hgb 8.7 g/dL (12.2-16.2) L 08/14/19 07:20 Hct 28.8 % (37.0-47.0) L 08/14/19 07:20 Plt Count 181 K/mm3 (142-424) 08/14/19 07:20 BUN 10 mg/dL (7-18) 08/13/19 05:55 Creatinine 0.58 mg/dL (0.55-1.02) 08/13/19 05:55 Estimated Creat Clear 175 mL/min (50-200) 08/13/19 05:55 - Prophylaxis VTE Prophylaxis Ordered?: Yes Types of VTE Prophylaxis: IPCS Thigh High Location of Applied Device: Bilateral Lower Extremeties
[2019-08-15 13:32] VITALS: BP 127/87
--- NOTE | 2019-08-16 13:48 | Progress Note ---
Internal Medicine - PN: Subj *Date: 08/16/19 *Time: 13:46 Interval history: POD #3 primary CS Ready for discharge today with no new complaints Exam Vital signs and Labs for Last 24 Hours: Temp Pulse Resp BP Pulse Ox 97.6 F 94 H 17 127/87 100 08/15/19 12:30 08/15/19 12:30 08/15/19 12:30 08/15/19 12:30 08/15/19 12:30 I & O for Last 24 hours: Intake & Output 08/14/19 08/15/19 08/16/19 08/17/19 11:59 11:59 11:59 11:59 Output Total 600 / 600 Balance -600 / -600 Narrative: CONSTITUTIONAL: no acute distress HEENT: mucous membranes moist PULMONARY: breathing unlabored without audible wheezes CV: no tachycardia or visible JVD; normal LE peripheral pulses ABD: soft, ND; appropriately tender but no rebound/guarding : fundus firm at/below umbilicus SKIN: incision well approximated with no drainage, erythema or induration EXT: 1+ edema LEs NEURO: alert/oriented, no altered mental status PSYCH: appropriate mood and demeanor without anxiety/depression Assessment and Plan (1) Delivery by section for breech presentation Current visit: Yes Status: Acute Category: Medical Code(s): O32.1XX0 - Maternal care for breech presentation, not applicable or unspecified (2) Anemia, antepartum Current visit: Yes Status: Acute Category: Medical Code(s): O99.019 - Anemia complicating , unspecified trimester (3) Uterine atony Current visit: Yes Status: Acute Category: Medical Code(s): O62.2 - Other uterine inertia - Assessment and plan all Dx Assessment and Plan for all problems:: Discharge home per arrangements made by Dr. Hill F/u with Dr. Hill in office 1-2 wks
== END 2019-08-16 13:25 | disposition home or self-care (01) | DRG 787 ==
LOC: OB 05:31
PROVIDERS: ADMIT Nurse Practitioner Obstetrics & Gynecology; ATTEND Nurse Practitioner Obstetrics & Gynecology
CPT/HCPCS: 36415; 59025; 76815; 80048; 80305; 81001; 85014; 85018; 85025; 86850; 90715; J2405; P9016

== ENCOUNTER 2020-04-27 20:23 | Emergency (ER) | payer OTHER, SELFPAY ==
[2020-04-27 20:24] VITALS: BP 132/80; PULSE 83; RESP 16; TEMP 36.9; O2SAT 99; BMI 20.5
[2020-04-27 20:37] VITALS: BP 132/80; PULSE 83; RESP 16; TEMP 36.9; O2SAT 99; BMI 20.5
--- NOTE | 2020-04-27 21:08 | HMH.EDUTC ---
[facility] [place] Disposition Clinical Impression: Laceration Disposition: Home, Self-Care Condition on Discharge: Good Instructions: How to Care for a Laceration After Repair, Laceration Repair, DI for Laceration Repair -- Simple Additional Instructions: Suture instructions: You have required stitches today. Please read the following instructions so you know how to care for them: 1. Keep wound area dry for the first 24 hours. 2 May clean gently with mild soap and water, after 48 hours to prevent crusting over suture knots. 3. You may shower if your provider gives permission but do not take a bath until the skin is healed.. 4. Never leave a wet dressing or Band-Aid on your stitches as this allows bacteria to reach the area and may cause infection. Band-aids can cause the wound to sweat and not recommended to wear for long periods of time no neosporin after today and leave open to air when at home and cover with loose dressing when out wear finger splint Watch for signs of infection: Increasing redness, tenderness or warmth around the suture site Unusual swelling around the site Appearance of pus around each suture or any red streaks Fever If you develop any of the above signs or symptoms of infection, Follow up with Family Physician immediately 5. Suture removal in __10-12__days 6. Return to [facility] or follow up with family doctor for removal. This can be done by any medical provider during regular hours on Saturday through Saturday, by appointment. Referrals: Evelio Storm MD [Primary Care Provider] - As needed Time of Disposition: 21:11 Medical Decision Making - Juan Carlos Inquiry Pt receiving controlled substance: No Juan Carlos was queried for this patient: No Vital Signs: 04/27/20 20:24 04/27/20 20:37 Temperature 98.4 F 98.4 F Temperature Source Oral Oral Pulse Rate [Right Radial] 83 83 Respiratory Rate 16 16 Blood Pressure [Right Arm] 132/80 132/80 Blood Pressure Mean [Right Arm] 97 97 Blood Pressure Source [Right Arm] Automatic Cuff Automatic Cuff Blood Pressure Position [Right Arm] Sitting Sitting 02 Sat by Pulse Oximetry 99 99 Oxygen Delivery Method Room Air Room Air Orders (Tests/Meds): ED MEDICATIONS Discontinued Medications Generic Name Dose Route Start Last Admin Trade Name Freq PRN Reason Stop Dose Admin Tetanus/Reduced Diphtheria/Acell Pertussis 0.5 ml 04/27/20 20:39 04/27/20 20:53 Tet/Diphth/Pert-Adult 0.5ml Syringe IM 04/27/20 20:40 0.5 ml .ONCE ONE Administration Medical Decision Narrative: Patient unsure of last tetatnus and last documented was in 2010 [facility] [place] HPI - General Stated complaint: AO 04/27 @ 1999 lac to left index finger Time Seen by Provider: 04/27/20 20:45 Mode of Arrival: Ambulatory Source of Information: Patient Limitations: No Limitations Description of Symptoms (Recalled from Triage Doc. by RN): Pt cut left index finger with a knife while cooking dinner. Pt as full range of motion w/ no active bleeding currently. HEENT Symptoms (Recalled from RN notes): No Resp Symptoms (Recalled from RN notes): No Skin Symptoms (Recalled from RN notes): Yes MS Symptoms (Recalled from RN notes): No Functional Status (Recalled from RN notes): wnl - History of Present Illness Provider Complaint: Patient states that she was cooking dinner at home and was using a knife to cut frozen dumplings when the knife slipped and cut her left index finger around her knuckle area States that she is able to move finger easily and denies numbnes or loss of sensation - Related Data Previous Rx's Medication Instructions Recorded Ferrous Sulfate [Ferrous Sulfate 325 mg PO BID #60 tab 08/14/19 325mg Tablet] norethindrone (contraceptive) 0.35 0.35 mg PO DAILY #28 tab 09/30/19 mg tablet Allergies Allergy/AdvReac Type Severity Reaction Status Date / Time chlorpheniramine Allergy Mild Verified 09/30/19 11:03 dextromethorphan Allergy Mild Verified 09/30/19 11:03 phenylephrine Allergy
[2020-04-27 21:18] VITALS: BP 132/80; PULSE 83; RESP 16; TEMP 36.9; O2SAT 99
== END 2020-04-27 21:18 | disposition home or self-care (01) ==
LOC: ER 20:33 → UTC 20:34
PROVIDERS: Emergency Provider Nurse Practitioner; PCP Internal Medicine Adolescent Medicine
DX: S61.211A Laceration without foreign body of left index finger without damage to nail, initial encounter (principal); W26.0XXA Contact with knife, initial encounter; Y92.019 Unspecified place in single-family (private) house as the place of occurrence of the external cause; Z23 Encounter for immunization
CPT/HCPCS: 12001; 90471; 90715; 99201

== ENCOUNTER → 2020-08-29 15:52 | Outpatient (CLI) | payer OTHER, SELFPAY | PROVIDERS: Visit Provider Nurse Practitioner Obstetrics & Gynecology | DX: Z34.90 Encounter for supervision of normal pregnancy, unspecified, unspecified trimester (principal) | CPT/HCPCS: 84702 ==

== ENCOUNTER → 2020-09-06 12:45 | Outpatient (CLI) | payer OTHER, SELFPAY ==
--- NOTE | 2020-09-06 12:46 | US_ITS ---
PROCEDURE: US OB <= 14 WEEKS FETUS CLINICAL INDICATION: US OB before 14 wks for DATES COMPARISON: US US OB LIMITED POSITION from 08/13/2019 FINDINGS: An intrauterine gestational sac is present with a pole with a crown-rump length of 1.88cm correlating to gestational age of 8weeks 3days. heart tones are present with an FHR of 164bpm. Yolk sac is noted. Unremarkable adnexa IMPRESSION: Live IUP at 8 weeks 3 days Estimated due date by Ultrasound is 04/15/2021 Dictated by: Franklyn Yuen MD 09/06/2020 17:59 Franklyn Yuen MD in [place] 09/06/2020 17:59
[2020-09-06 13:38] LABS: Basophils % 0.2 % (0.1-2.0); Eosinophils # 0.1 K/mm3 (0.0-0.4); Eosinophils % 1.4 % (0.1-12.0); Hematocrit 39.8 % (37.0-47.0); Lymphocytes # 1.8 K/mm3 (0.7-4.5); Lymphocytes % 23.5 % (10-50); Mean Corpuscular HGB Conc 32.6 g/dL (31.8-35.4); Mean Corpuscular Hemoglobin 27.2 pg (27.0-31.2); Mean Corpuscular Volume 83.2 fl (81-99); Mean Platelet Volume 7.8 fl (7.4-10.4); Monocytes # 0.4 K/mm3 (0.1-1.0); Monocytes % 5.6 % (1.7-9.3); Neutrophils # 5.2 K/mm3 (1.8-7.8); Neutrophils % 69.2 % (37.0-80.0); Platelet Count 272 K/mm3 (142-424); Red Blood Count 4.79 M/mm3 (4.20-5.40); White Blood Count 7.5 K/mm3 (4.8-10.8)
[2020-09-10 22:36] LABS: HIV Screen 4th Generation wRfx NONREACTIVE; Hepatitis B Surface Antigen NEGATIVE; Hepatitis C Antibody <0.1; Rapid Plasma Reagin Ab Titer NONREACTIVE
== END ==
PROVIDERS: PCP Internal Medicine Adolescent Medicine; Visit Provider Nurse Practitioner Obstetrics & Gynecology
DX: O26.841 Uterine size-date discrepancy, first trimester (principal)
CPT/HCPCS: 36415; 76801; 85025; 86592; 86703; 86762; 86850; 87340; 87380; G0432

== ENCOUNTER → 2020-09-06 13:16 | Outpatient (CLI) | payer OTHER, SELFPAY | PROVIDERS: Visit Provider Nurse Practitioner Obstetrics & Gynecology | DX: Z34.90 Encounter for supervision of normal pregnancy, unspecified, unspecified trimester (principal) | CPT/HCPCS: 36415; 85025; 86592; 86703; 86762; 86850; 87340; 87380; G0432 ==

== ENCOUNTER → 2020-12-01 13:12 | Outpatient (CLI) | payer OTHER, SELFPAY ==
--- NOTE | 2020-12-01 13:12 | US_ITS ---
PROCEDURE: US OB >= 14 WEEKS FETUS CLINICAL INDICATION: 20 week gestation Anatomy exam COMPARISON: US US OB <= 14 WEEKS FETUS from 09/06/2020 FINDINGS: There is a single live intrauterine gestation which is in breech presentation. Cervix is closed and measures 3 cm. Placenta is anterior and grade 1. The amniotic fluid volume appears slightly greater than expected. Follow-up suggested. Complete survey performed and was unremarkable on the submitted images as in PACS. No discrete anomalies identified on survey imaging by technologist. Active fetus. Three-vessel cord with satisfactory umbilical cord insertion. 4- chamber heart noted. Survey of brain & ventricles Unremarkable. Face and neck survey unremarkable. Diaphragm and chest views unremarkable. Abdomen: Both kidneys noted and unremarkable. Stomach noted and satisfactory. Spine: Survey of the spine satisfactory with no anomalies identified nor imaged. Both arms and legs noted. Amniotic Fluid: Adequate. Maternal adnexa: No significant findings. Measurements: Average ultrasound age 21weeks 1day. Gestational Age 20weeks 5days Estimated due date by ultrasound age 1004/12/2021. Estimated weight 399g BPD = 21weeks 4days OFD = 20weeks 5days HC = 20weeks 2days AC = 21weeks 3days FL = 21weeks Growth Percentile= 67Percent% Heart Rate = 139bpm Cerebellum = 20weeks 5days Humerus = 21weeks HC/AC is 1.09 CI is 0.84 FL/BPD is 0.68 FL/AC is 0.21 IMPRESSION: Live IUP with an average ultrasound age of 21 weeks and 4 days. No obvious anomalies. Please see above for detail. Amniotic fluid volume appears slightly greater than expected. Consider follow-up Dictated by: Franklyn Yuen MD 12/02/2020 11:12 Franklyn Yuen MD in OV 12/02/2020 11:12
== END ==
PROVIDERS: PCP Internal Medicine Adolescent Medicine; Visit Provider Nurse Practitioner Obstetrics & Gynecology
DX: Z34.90 Encounter for supervision of normal pregnancy, unspecified, unspecified trimester (principal); Z3A.20 20 weeks gestation of pregnancy
CPT/HCPCS: 76805

== ENCOUNTER → 2021-01-30 08:32 | Outpatient (CLI) | payer OTHER, SELFPAY ==
[2021-01-30 09:25] LABS: Glucose,Fasting 95 mg/dl (74-100)
[2021-01-30 10:40] LABS: Glucose 1 Hour 143 mg/dL (74-100)
[2021-01-31 08:09] LABS: Hepatitis B Surface Antigen Negative (Negative); Hepatitis C Antibody <0.1 s/co ratio (0.0-0.9)
[2021-01-31 08:14] LABS: Rapid Plasma Reagin Ab Titer Non Reactive (NonRea<1:1); Rubella Antibodies, IgG 1.56 index (Immune >0.99)
[2021-01-31 09:26] LABS: HIV Screen 4th Generation wRfx Non Reactive (Non Reactive)
== END ==
PROVIDERS: Visit Provider Nurse Practitioner Obstetrics & Gynecology
DX: Z34.90 Encounter for supervision of normal pregnancy, unspecified, unspecified trimester (principal)
CPT/HCPCS: 36415; 82951; 86592; 86703; 86762; 87340; 87380; G0432

== ENCOUNTER → 2021-03-14 13:51 | Outpatient (CLI) | payer OTHER, SELFPAY ==
--- NOTE | 2021-03-14 13:52 | US_ITS ---
PROCEDURE: US OB BIOPHYSICAL PROFILE CLINICAL INDICATION: LGA TECHNIQUE: FINDINGS: The following parameters are obtained: Average ultrasound age is Average 36weeks Estimated due date by ultrasound is 04/11/2021. Estimated weight is 2,940g. This is 77th percentile BPD: 35weeks 4days OFD: 35weeks 4days HC: 31.2cm AC: 33.3cm FL: 7cm heart rate: 161bpm bpm. HC/AC: 0.94 Cephalic index: 0.79 FL/BPD: 0.81 FL/AC: 0.21 Amniotic fluid index: 19.29cm Qualitative AFV: 2 breathing movements: 2 Gross body movements: 2 Tone: 2 Biophysical profile score: 8 A single live fetus is present in cephalic presentation. heart body motion noted. The cervix is closed measuring 3 cm. The placenta is anterior and grade 1. Heart rate is 161 BPM IMPRESSION: Average ultrasound age is Average 36weeks Estimated due date by ultrasound is 04/11/2021. Estimated weight is 2,940g. This is 77th percentile. Cephalic presentation. NOE 19 cm BPP 8 of 8 Dictated by: Franklyn Yuen MD 03/15/2021 09:47 Franklyn Yuen MD in OV 03/15/2021 09:47
== END ==
PROVIDERS: PCP Internal Medicine Adolescent Medicine; Visit Provider Nurse Practitioner Obstetrics & Gynecology
DX: O36.60X0 Maternal care for excessive fetal growth, unspecified trimester, not applicable or unspecified (principal)
CPT/HCPCS: 76816; 76819

== ENCOUNTER → 2021-03-21 08:00 | Outpatient (CLI) | payer OTHER, SELFPAY | PROVIDERS: Visit Provider Nurse Practitioner Obstetrics & Gynecology | DX: Z34.90 Encounter for supervision of normal pregnancy, unspecified, unspecified trimester (principal); Z3A.36 36 weeks gestation of pregnancy | CPT/HCPCS: 86403 ==

== ENCOUNTER 2021-03-30 11:43 | Outpatient (CLI) | payer OTHER, SELFPAY ==
[2021-03-30 12:00] LABS: Microscopic, Urine URINE MICROSCOPIC (MICROSCOPIC)
[2021-03-30 12:03] LABS: Appearance,Urine CLEAR (Clear); Blood, Urine 3+ (Negative); Color,Urine YELLOW (Yellow); Glucose,Urine (UA) Negative (Negative); Ketones,Urine TRACE (Negative); Leukocyte Esterase,Urine Negative (Negative); Nitrate,Urine Negative (Negative); Protein,Urine TRACE (Negative); Specific Gravity, Urine 1.025 (1.005-1.030); Urobilinogen,Urine 0.2 EU/dl (0.2)
[2021-03-30 12:14] LABS: Bilirubin,Urine 1+ (Negative)
[2021-03-30 12:15] VITALS: BP 113/89; PULSE 110; RESP 20; O2SAT 100; BMI 30.6
[2021-03-30 12:15] LABS: RBC,Urine 20-50 #/hpf (0-3)
[2021-03-30 12:18] LABS: Amphetamine/Metha Screen,Urine Negative ng/ml (<1000); Barbiturates Screen,Urine Negative ng/ml (<200)
[2021-03-30 12:19] LABS: Benzodiazepines Screen,Urine Negative ng/ml (<200)
[2021-03-30 12:20] LABS: Cannabinoid Screen,Urine Negative ng/ml (<50); Cocaine Screen,Urine Negative ng/ml (<300)
[2021-03-30 12:21] LABS: Methadone Screen,Urine Negative ng/ml (<300)
[2021-03-30 12:22] LABS: Opiate Screen,Urine Negative ng/ml (<300); Phencyclidine Screen,Urine Negative ng/ml (<25)
== END 2021-03-30 13:16 | disposition home or self-care (01) ==
LOC: OBOUT 11:44 → OB 11:44
PROVIDERS: PCP Internal Medicine Adolescent Medicine; Visit Provider Nurse Practitioner Obstetrics & Gynecology
DX: O60.03 Preterm labor without delivery, third trimester (principal); Z3A.37 37 weeks gestation of pregnancy
CPT/HCPCS: 59025; 80305; 81001; 96365; G0463

== ENCOUNTER 2021-04-04 04:40 | Outpatient (CLI) | payer OTHER, SELFPAY ==
[2021-04-04 05:04] LABS: Microscopic, Urine URINE MICROSCOPIC (MICROSCOPIC)
[2021-04-04 05:09] LABS: Appearance,Urine CLEAR (Clear); Bilirubin,Urine Negative (Negative); Blood, Urine Negative (Negative); Color,Urine YELLOW (Yellow); Glucose,Urine (UA) Negative (Negative); Ketones,Urine Negative (Negative); Leukocyte Esterase,Urine Negative (Negative); Nitrate,Urine Negative (Negative); Protein,Urine Negative (Negative); Urobilinogen,Urine 0.2 EU/dl (0.2)
[2021-04-04 05:18] VITALS: BP 130/94; PULSE 87; RESP 18; TEMP 36.8; O2SAT 98
[2021-04-04 05:20] LABS: Bacteria,Urine 1+ /lpf
[2021-04-04 05:21] LABS: Amphetamine/Metha Screen,Urine Negative ng/ml (<1000); Barbiturates Screen,Urine Negative ng/ml (<200)
[2021-04-04 05:22] LABS: Benzodiazepines Screen,Urine Negative ng/ml (<200); Cannabinoid Screen,Urine Negative ng/ml (<50)
[2021-04-04 05:23] LABS: Cocaine Screen,Urine Negative ng/ml (<300)
[2021-04-04 05:24] LABS: Methadone Screen,Urine Negative ng/ml (<300); Opiate Screen,Urine Negative ng/ml (<300)
[2021-04-04 05:25] LABS: Phencyclidine Screen,Urine Negative ng/ml (<25)
== END 2021-04-04 06:10 | disposition home or self-care (01) ==
LOC: OBOUT 04:42 → OB 04:43
PROVIDERS: PCP Internal Medicine Adolescent Medicine; Visit Provider Nurse Practitioner Obstetrics & Gynecology
DX: O60.03 Preterm labor without delivery, third trimester (principal); Z3A.38 38 weeks gestation of pregnancy
CPT/HCPCS: 59025; 80305; 81001; G0463

== ENCOUNTER → 2021-04-07 12:49 | Outpatient (CLI) | payer OTHER, SELFPAY | PROVIDERS: Visit Provider Nurse Practitioner Obstetrics & Gynecology | DX: Z34.90 Encounter for supervision of normal pregnancy, unspecified, unspecified trimester (principal) | CPT/HCPCS: C9803; U0003; U0005 ==

== ENCOUNTER 2021-04-08 21:04 | Inpatient (IN) | payer OTHER, SELFPAY ==
[2021-04-08] VITALS (8 sets, daily range): BP systolic 125–160; BP diastolic 75–96; PULSE 76–101; RESP 12–18; TEMP 36.8–37.3; O2SAT 97–99; BMI 30.7
[2021-04-08 20:46] LABS: Basophils % 0.4 % (0.1-2.0); Eosinophils # 0.1 K/mm3 (0.0-0.4); Eosinophils % 1.2 % (0.1-12.0); Hematocrit 39.1 % (37.0-47.0); Hemoglobin 12.9 g/dL (12.2-16.2); Lymphocytes # 2.1 K/mm3 (0.7-4.5); Lymphocytes % 24.4 % (10-50); Mean Corpuscular Hemoglobin 29.7 pg (27.0-31.2); Mean Corpuscular Volume 90.1 fl (81-99); Mean Platelet Volume 10.1 fl (7.4-10.4); Monocytes # 0.6 K/mm3 (0.1-1.0); Monocytes % 6.5 % (1.7-9.3); Neutrophils # 5.8 K/mm3 (1.8-7.8); Neutrophils % 67.6 % (37.0-80.0); Platelet Count 252 K/mm3 (142-424); Red Blood Count 4.34 M/mm3 (4.20-5.40); Red Cell Distribution Width 14.1 % (11.5-17.5); White Blood Count 8.5 K/mm3 (4.8-10.8)
[2021-04-08 21:01] LABS: Anion Gap 11.8 mEq/L (5-15); Blood Urea Nitrogen 10 mg/dl (7-17); Calcium 8.9 mg/dl (8.4-10.2); Carbon Dioxide 19 mmol/L (22.0-30.0); Chloride 106 mmol/L (98-107); Creatinine Clearance Estimated 228 mL/min (50-200); Estimated Glomerular Filt Rate 156 ml/min (>60); GFR (African American) 188 ML/MIN (>60); Glucose 122 mg/dl (74-100); Potassium 3.8 mmoL/L (3.5-5.1); Sodium 133 mmol/L (136-145)
--- NOTE | 2021-04-08 22:53 | HMH.OBCSECT ---
1. Term intrauterine . 2. Previous section. 3. Active labor with premature rupture of membranes. 4. Breech presentation. Procedure: Repeat low transverse cervical section. Senior Accounts Payable Specialist: Garrett Meredith Disposition: PACU Anesthesia type: General Complications: None Narrative: This 20-year-old 2, now para 2, Ab0 white female had had a previous section within the past 2 years and was scheduled for a repeat section on 04/10/2021. The baby was also thought to be in a breech presentation. At approximately 2000 hrs. tonight she spontaneously ruptured membranes at home and began janie regularly. He then came to the labor room where she was found to be in active labor with her cervix 3 cm dilated. She had a recent negative Covid test and her preop hemoglobin was 12.9 g. Preparations were made for an emergency section; however, because she had eaten approximately 4 hours previously, anesthesia recommended a general anesthetic with intubation. This was discussed with the patient and her fianc?, who agreed. She was given 2 g of ampicillin IV as a preop dose, and was taken to the operating room. In the operating room, after the patient was prepped and general anesthesia was administered, a low Pfannenstiel incision was made across the midline through the previous incision, and the fat and fascia were in the usual fashion, bleeders being clamped and coagulated along the way. The peritoneum was entered with Metzenbaum scissors, and extended above and below. The bladder peritoneum was advanced past the midportion of the uterus, and so the low transverse uterine incision was made above the bladder, and taken down to the amniotic sac, which was ruptured for clear fluid. The baby was found to be in the ROT position of the vertex (not breech as had been previously described) and, with appropriate fundal pressure, the head was easily delivered. There was a loose nuchal cord x1, which was easily reduced. There was no meconium. The baby's nasal and oropharynx were bulb suctioned, and the baby cried spontaneously on the abdomen, as was delivered. The cord was clamped and cut, 3 vessels were noted to be within the cord, and cord blood was obtained. The baby was handed into the arms of the attending RN, who assigned Apgars of 8 at 1 minute and 9 at 5 minutes to this 8 pound 7 ounce male , born at 2211. The placenta was delivered manually, intact, at 2213. The uterus was inspected and was felt to be clean, and a ring forceps was used to assure adequate drainage to the cervix. This was then passed off the field as an unsterile instrument. The uterus was closed in 2 layers, the first a running locked suture of #1 Vicryl as an endometrial layer, followed by a running unlocked suture of #1 Vicryl as a myometrial layer, imbricating over the first. The bladder peritoneum remained intact. A single omental adhesion was noted attached to the fundus of the uterus, and this was detached with cautery. Blood and clots were then swept from the gutters, and the tubes and ovaries were inspected and found to be normal. The peritoneum was grasped with 3 Ping clamps, and closed with a running semilocked suture of 0 Vicryl. The muscle was approximated with a running unlocked suture of 0 Vicryl. The fascia was closed with a running locked suture of #1 Vicryl. The subcutaneous fat and Frederic's fascia were closed with a running unlocked suture of 2-0 Vicryl. The skin was closed with a subcuticular suture of 3-0 Vicryl, and appropriately dressed. The sponge and needle counts correct. The estimated blood loss was 400 cc. A pelvic examination at the close of the procedure expressed blood and clots from the involuting uterus, with IV Pitocin running. A TAP block was to be administered by anesthesia postoperatively. The urine was clear in the Lopez catheter. The patient tolerated the procedure well, and was taken to
--- NOTE | 2021-04-08 23:06 | HMH.ANESCL ---
[facility] Anesthesia Checklist - Structural Data Admitted From: Inpatient Planned Operative Procedure/s: c/section Consent for Planned Operative Procedure(s) Verified: Yes - Additional verifications Anesthesia Reactions: No Hx Blood Transfusions: No Blood Transfusion Reaction: No - Airway Assessment C-Spine Mobility Assessed: Yes TMJ Mobility Assessed: Yes Dentition: Good Dentition - Neurological Assessment Level of Consciousness: Awake, Alert, Appropriate - Anesthesia Plan Anesthesia Risk discussed: Yes Anesthesia Plan: Verified ASA Class: II Anesthesia Type: General - Preoperative Comments Pre-Operative Comments: ptate meal 4 hours ago, explained the need to go to sleep, pt agrees and understands [facility] History I have reviewed the patient's past medical history: Yes 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: Denies:: Seizures *Have you ever received a pneumonia vaccine?: No *Have you received a flu vaccine this season?: No Other 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: Denies: Blood Transfusion Reaction Anesthesia experience/problems:: none Other Surgeries: Yes: No Previous Surgery, Amputation: No Fractures: No - *Social History Smoking Status: Never smoker Alcohol Intake: never Alcohol Intake Frequency:: other Substance Use Type: denies use *Occupational Status:: other *Travel in the last 8 weeks: None Family Hx:: No significant family history Para: 1
--- NOTE | 2021-04-08 23:08 | HMH.ANESI ---
[facility] Anesthesia Record Part I Intake, IV Amount: 1,500 Estimated blood loss (mL): 600 Urine output (mL): 250 Blood Pressure: 125/82 SaO2: 99 Pulse Rate: 76 Respiratory Rate: 12 Temperature: 99.1 F Patient is:: Awake, Stable Stable to PACU at:: 23:00
[2021-04-09 00:07] LABS: Microscopic, Urine URINE MICROSCOPIC (MICROSCOPIC)
[2021-04-09 00:13] LABS: Appearance,Urine CLEAR (Clear); Bilirubin,Urine Negative (Negative); Blood, Urine Negative (Negative); Color,Urine YELLOW (Yellow); Glucose,Urine (UA) Negative (Negative); Ketones,Urine Negative (Negative); Leukocyte Esterase,Urine Negative (Negative); Nitrate,Urine Negative (Negative); Protein,Urine Negative (Negative); Urobilinogen,Urine 0.2 EU/dl (0.2)
[2021-04-09 00:20] LABS: Amphetamine/Metha Screen,Urine Negative ng/ml (<1000)
[2021-04-09 00:23] LABS: Benzodiazepines Screen,Urine Negative ng/ml (<200); Cannabinoid Screen,Urine Negative ng/ml (<50); Cocaine Screen,Urine Negative ng/ml (<300); Methadone Screen,Urine Negative ng/ml (<300)
[2021-04-09 00:24] LABS: Opiate Screen,Urine Negative ng/ml (<300); Phencyclidine Screen,Urine Negative ng/ml (<25)
[2021-04-09 00:28] LABS: Amorphous Sediment,Urine Trace /lpf
[2021-04-09 00:31] LABS: Barbiturates Screen,Urine Negative ng/ml (<200)
[2021-04-09 06:14] LABS: Hematocrit 33.7 % (37.0-47.0)
[2021-04-09 06:17] LABS: Hemoglobin 10.9 g/dL (12.2-16.2)
--- NOTE | 2021-04-09 09:49 | P.PN_ITS ---
Internal Medicine - PN: Subj *Date: 04/09/21 *Time: 09:49 (This is and postop day #1. The patient is afebrile. Vital signs stable. Wound clean. Abdomen soft. Lochia normal. Uterine fundus involuting well. Hemoglobin 10.9 g, clinically stable. Breast-feeding well. Impression: Stable.) Exam Vital signs and Labs for Last 24 Hours: Temp Pulse Resp BP Pulse Ox 98.5 F 91 H 14 149/75 H 98 04/08/21 23:40 04/08/21 23:40 04/08/21 23:40 04/08/21 23:40 04/08/21 23:40 Laboratory Results - last 24 hr 04/08/21 20:30: WBC 8.5, RBC 4.34, Hgb 12.9, Hct 39.1, MCV 90.1, MCH 29.7, MCHC 33.0, RDW 14.1, Plt Count 252, MPV 10.1, Neut % (Auto) 67.6, Lymph % (Auto) 24.4, Bea[place]gard % (Auto) 6.5, Eos % (Auto) 1.2, Baso % (Auto) 0.4, Neut # (Auto) 5.8, Lymph # (Auto) 2.1, [place] # (Auto) 0.6, Eos # (Auto) 0.1, Baso # (Auto) 0.0 04/08/21 20:30: Sodium 133 L, Potassium 3.8, Chloride 106, Carbon Dioxide 19 L, Anion Gap 11.8, BUN 10, Creatinine 0.50 L, Estimated Creat Clear 228, Estimated GFR 156, Est GFR ( Amer) 188, Glucose 122 H, Calcium 8.9 04/08/21 20:30: Blood Type O Positive, Antibody Screen Negative 04/08/21 22:00: Urine Color Yellow, Urine Appearance Clear, Urine pH 6.0, Ur Specific [place] 1.020, Urine Protein Negative, Urine Glucose (UA) Negative, Urine Ketones Negative, Urine Blood Negative, Urine Nitrate Negative, Urine Bilirubin Negative, Urine Urobilinogen 0.2, Ur Leukocyte Esterase Negative, Amorphous Sediment Trace 04/08/21 22:00: Urine Opiates Screen Negative, Urine Methadone Screen Negative, Ur Barbituates Screen Negative, Ur Phencyclidine Scrn Negative, Ur Amphetamines Screen Negative, U Benzodiazepines Scrn Negative, Urine Cocaine Screen Negative, U Marijuana (THC) Screen Negative 04/09/21 05:35: Hgb 10.9 L D, Hct 33.7 L I & O for Last 24 hours: Intake & Output 04/06/21 04/07/21 04/08/21 04/09/21 11:59 11:59 11:59 11:59 Intake Total 1500 / 1500 Output Total 1800 / 1800 Balance -300 / -300 Weight 179 lb
--- NOTE | 2021-04-09 13:42 | HMH.PHAINT ---
MEDICATION RECONCILIATION COMPLETE USING LIST FROM MD OFFICE VISIT AND EXTERNAL PHARMACY FILL HISTORY
--- NOTE | 2021-04-09 13:43 | HMH.PHAVTE ---
[facility] Pharmacy VTE Monitoring - Patient Demographics Admission date: 04/08/21 Report Date: 04/09/21 Time: 13:43 Allergies/Adverse Reactions: Patient Allergies chlorpheniramine Allergy (Mild, Verified 04/05/21 14:14) dextromethorphan Allergy (Mild, Verified 04/05/21 14:14) phenylephrine Allergy (Mild, Verified 04/05/21 14:14) Height: 1.63 m Weight: 81.193 kg - VTE Risk Labs: VTE Related Lab Results Hgb 10.9 g/dL (12.2-16.2) L D 04/09/21 05:35 Hct 33.7 % (37.0-47.0) L 04/09/21 05:35 Plt Count 252 K/mm3 (142-424) 04/08/21 20:30 BUN 10 mg/dl (7-17) 04/08/21 20:30 Creatinine 0.50 mg/dl (0.52-1.04) L 04/08/21 20:30 Estimated Creat Clear 228 mL/min (50-200) 04/08/21 20:30 Was VTE Risk Assessment Performed: No Clinical Trial Participant: No - Prophylaxis VTE Prophylaxis Ordered?: Yes Types of VTE Prophylaxis: TEDS Knee High Location of Applied Device: Bilateral Lower Extremeties
[2021-04-09 16:00] VITALS: BP 131/70; PULSE 82; RESP 20; TEMP 36.7; TEMP 37.2; O2SAT 100
[2021-04-09 20:25] VITALS: BP 119/69; PULSE 93; RESP 18; TEMP 36.7; O2SAT 99
[2021-04-10 05:29] VITALS: BP 116/70; PULSE 86; RESP 16; TEMP 36.6; O2SAT 98
--- NOTE | 2021-04-10 12:19 | HMH.DCSUM ---
General - General Admission date:: 04/08/21 Discharge date: 04/10/21 Hospital Course Hospital Course: admitted with spontaneous rupture of membranes delivery by repeat CS asmyptomatic with acute blood loss anemia desires discharge home on POD #2 Rhogam Administration: Not Indicated Objective Vital signs: Temp Pulse Resp BP Pulse Ox 97.9 F 86 16 116/70 98 04/10/21 05:29 04/10/21 05:29 04/10/21 05:29 04/10/21 05:29 04/10/21 05:29 Narrative: CONSTITUTIONAL: no acute distress HEENT: mucous membranes moist PULMONARY: breathing unlabored without audible wheezes CV: no tachycardia or visible JVD; normal LE peripheral pulses ABD: soft, ND; appropriately tender but no rebound/guarding : fundus firm at/below umbilicus SKIN: incision well approximated with no drainage, erythema or induration EXT: 1+ edema LEs NEURO: alert/oriented, no altered mental status PSYCH: appropriate mood and demeanor DS: Diagnosis - Discharge Diagnosis (1) Delivery by classical section Status: Acute (2) Anemia due to acute blood loss Status: Acute Discharge Plan - Patient Discharge Instructions ACTIVITY: Continue current activity DIET: regular diet Additional Instructions: No heavy Lifting No driving Nothing in the vagina for 6 weeks No tub baths Drink plenty of fluids Patient Instructions: Depression, Hemorrhage, DI for , DI for Pre-eclampsia, [facility] Post Discharge Instructions, Preventing the Spread of Coronavirus Discharge Instructions - Follow up Plan Follow up with: Aron Hill MD [Staff Physician] - 05/01/21 10:30 am Disposition: Home, Self-Care Condition at discharge:: Stable Home Medications: Home Medications Medication Instructions Recorded Confirmed Type prenat.vits,sofia,nik-dgul-bcnoy 1 tab PO DAILY 08/31/20 04/09/21 History Ferrous Sulfate 325 mg PO DAILY 04/09/21 04/09/21 History Fluoxetine HCl [Prozac] 10 mg PO DAILY 04/09/21 04/09/21 History Ibuprofen [Motrin 400mg 800 mg PO Q6HP PRN #40 tab 04/10/21 Rx tablet] Oxycodone HCl [Oxycodone 5mg tab 5 mg PO Q6 PRN #24 tablet 04/10/21 Rx (IR)] Prescriptions/Medication Reconciliation: New Acetaminophen [Acetaminophen 325mg tab] 650 mg PO Q4HP PRN tablet PRN Reason: Mild Pain Oxycodone HCl [Oxycodone 5mg tab (IR)] 5 mg PO Q6 PRN #24 tablet PRN Reason: Moderate To Severe Pain Ibuprofen [Motrin 400mg tablet] 800 mg PO Q6HP PRN #40 tab PRN Reason: Mild To Moderate Pain Continued prenat.vits,sofia,jhw-oiqp-[id number] 1 tab PO DAILY Ferrous Sulfate 325 mg PO DAILY Fluoxetine HCl [Prozac] 10 mg PO DAILY - Problem Reconciliation Problems Reviewed?: Yes
--- NOTE | 2021-04-12 08:46 | HMH.ANESII ---
[facility] Anesthesia Record Part II Discharge Time: 23:30 Destination: Obstetric PACU nurse assessment reviewed?: Yes Patient Condition:: Good Anesthesia Complications:: None Swallowing reflex intact?: Yes Cyanosis?: No Blood Pressure: 131/70 Pulse Rate: 82 Temperature: 98.1 F Mental Status: Alert & Oriented Pain level:: 3 Nausea and/or vomitting:: None Intake, IV Amount: 2,000
[2021-04-12 08:47] VITALS: BP 131/70; PULSE 82; TEMP 36.7
== END 2021-04-10 18:48 | disposition home or self-care (01) | DRG 788 ==
LOC: OBOUT 21:05 → OB 21:05
PROVIDERS: Admitting Provider Obstetrics & Gynecology; PCP Internal Medicine Adolescent Medicine; Visit Provider Obstetrics & Gynecology
PROC: 10D00Z1 Extraction of Products of Conception, Low, Open Approach (ICD-10-PCS; CPT 59514; principal; 2021-04-08 21:55)
DX: O34.211 Maternal care for low transverse scar from previous cesarean delivery (principal); N85.8 Other specified noninflammatory disorders of uterus; Z3A.39 39 weeks gestation of pregnancy; Z37.0 Single live birth
CPT/HCPCS: 59514; 36415; 59025; 80048; 80305; 81001; 85014; 85018; 85025; 86850; 94761; C9803; G0283; J0330; J2405; U0003; U0005

== ENCOUNTER → 2022-05-10 08:44 | Outpatient (CLI) | payer OTHER, SELFPAY ==
[2022-05-10 09:33] LABS: Basophils # 0.1 K/mm3 (0-0.2); Basophils % 0.6 % (0.1-2.0); Eosinophils # 0.2 K/mm3 (0.0-0.4); Eosinophils % 1.7 % (0.1-12.0); Hematocrit 42.3 % (37.0-47.0); Hemoglobin 13.6 g/dL (12.2-16.2); Lymphocytes # 2.2 K/mm3 (0.7-4.5); Lymphocytes % 23.3 % (10-50); Mean Corpuscular HGB Conc 32.1 g/dL (31.8-35.4); Mean Corpuscular Hemoglobin 27.2 pg (27.0-31.2); Mean Corpuscular Volume 84.8 fl (81-99); Mean Platelet Volume 7.9 fl (7.4-10.4); Monocytes # 0.4 K/mm3 (0.1-1.0); Monocytes % 4.3 % (1.7-9.3); Neutrophils # 6.6 K/mm3 (1.8-7.8); Neutrophils % 70.1 % (37.0-80.0); Platelet Count 346 K/mm3 (142-424); Red Blood Count 4.99 M/mm3 (4.20-5.40); Red Cell Distribution Width 13.5 % (11.5-17.5); White Blood Count 9.5 K/mm3 (4.8-10.8)
[2022-05-11 07:12] LABS: Rubella Antibodies, IgG 1.87 index (Immune >0.99)
[2022-05-11 08:19] LABS: HIV Screen 4th Generation wRfx Non Reactive (Non Reactive); Hepatitis B Surface Antigen Negative (Negative); Hepatitis C Antibody <0.1 s/co ratio (0.0-0.9)
[2022-05-11 11:20] LABS: Rapid Plasma Reagin Ab Titer Non Reactive (NonRea<1:1)
== END ==
PROVIDERS: PCP Internal Medicine Adolescent Medicine; Visit Provider Nurse Practitioner Obstetrics & Gynecology
DX: Z34.90 Encounter for supervision of normal pregnancy, unspecified, unspecified trimester (principal)
CPT/HCPCS: 36415; 85025; 86592; 86703; 86762; 86850; 87340; 87380; G0432

== ENCOUNTER → 2022-05-22 09:38 | Outpatient (CLI) | payer OTHER, SELFPAY ==
--- NOTE | 2022-05-22 09:44 | US_ITS ---
FINAL REPORT CLINICAL HISTORY: for dates FINDINGS: Sonographic images of the pelvis were obtained. A single, living intrauterine is noted. A yolk sac is present and measures 0.55 cm. [place] to rump length measures 28.7 mm which corresponds to 9 weeks 5 days gestation. Heartbeat is identified and measures 170 beats per minute. activity is noted. The right ovary is within normal limits and measures 3.6 cm in length. The left ovary is within normal limits and measures 2.8 cm in length. IMPRESSION: Single, living, intrauterine gestation with 9 weeks 5 days gestational age. Reviewed, Interpreted and Dictated by Ronald Graham MD Transcribed by Marcella Yip Authenticated and . [facility]
== END ==
PROVIDERS: PCP Internal Medicine Adolescent Medicine; Visit Provider Nurse Practitioner Obstetrics & Gynecology
DX: Z34.90 Encounter for supervision of normal pregnancy, unspecified, unspecified trimester (principal)
CPT/HCPCS: 76801

== ENCOUNTER → 2022-08-08 12:49 | Outpatient (CLI) | payer OTHER, SELFPAY ==
--- NOTE | 2022-08-08 12:49 | US_ITS ---
FINAL REPORT CLINICAL HISTORY: Ob complete FINDINGS: There is a single live intrauterine gestation. Presentation is breech. The cervix is closed and measures 3.6 cm. Placenta is posterior, grade 1. There is a questionable accessory lobe of the placenta anteriorly. movement is noted. Heart rate is measured at 144 beats per minute. Three-vessel cord with satisfactory umbilical cord insertion. Four-chamber heart is noted. brain and ventricles are unremarkable. Chest and diaphragm are unremarkable. ABDOMEN: Both kidneys are unremarkable. Stomach is unremarkable. SPINE: No anomalies identified. Both arms and legs noted. AMNIOTIC FLUID: Appropriate amount. MEASUREMENTS: ULTRASOUND AGE: 20 weeks 4 days. GESTATION AGE: 20 weeks 6 days. ESTIMATED WEIGHT: 372 g GROWTH PERCENTILE: 37% LMP percentile BPD: 4.7 cm corresponding with 20 weeks 2 days. OFD: 6.2 cm corresponding with 20 weeks 6 days. HC: 17.3 cm corresponding with 19 weeks 6 days. AC: 15.5 cm corresponding with 20 weeks 5 days. FL: 3.5 cm corresponding with 21 weeks 1 days. CEREBELLUM: 2.0 cm corresponding with 20 weeks 5 days. HUMERUS: 3.2 cm corresponding to 20 weeks 6 days. HC/AC: 1.11 CI: 76% FL/BPD: 74% FL/AC: 22% IMPRESSION: Single living IUP with an ultrasound age of 20 weeks 4 days. No gross anomalies noted. Questionable accessory lobe of the placenta anteriorly. Reviewed, Interpreted and Dictated by Garrett Liu III, MD Transcribed by Marcella Yip Authenticated and [facility]
== END ==
PROVIDERS: PCP Internal Medicine Adolescent Medicine; Visit Provider Nurse Practitioner Obstetrics & Gynecology
DX: Z34.90 Encounter for supervision of normal pregnancy, unspecified, unspecified trimester (principal); Z3A.18 18 weeks gestation of pregnancy
CPT/HCPCS: 76811

== ENCOUNTER → 2022-09-21 08:30 | Outpatient (CLI) | payer OTHER, SELFPAY ==
[2022-09-21 09:20] LABS: Glucose,Fasting 89 mg/dl (74-100)
[2022-09-21 11:19] LABS: Glucose 1 Hour 135 mg/dL (74-100)
== END ==
PROVIDERS: PCP Internal Medicine Adolescent Medicine; Visit Provider Nurse Practitioner Obstetrics & Gynecology
DX: Z34.90 Encounter for supervision of normal pregnancy, unspecified, unspecified trimester (principal)
CPT/HCPCS: 36415; 82951

== ENCOUNTER → 2022-10-08 08:48 | Outpatient (CLI) | payer OTHER, SELFPAY ==
[2022-10-08 09:42] LABS: Glucose,Fasting 94 mg/dl (74-100)
[2022-10-08 11:02] LABS: Glucose 1 Hour 172 mg/dL (74-100)
[2022-10-08 12:00] LABS: Glucose 2 Hour 112 mg/dL (74-100)
[2022-10-08 13:26] LABS: Glucose 3 Hour 149 mg/dL (74-100)
== END ==
PROVIDERS: PCP Internal Medicine Adolescent Medicine; Visit Provider Nurse Practitioner Obstetrics & Gynecology
DX: Z34.90 Encounter for supervision of normal pregnancy, unspecified, unspecified trimester (principal); Z3A.25 25 weeks gestation of pregnancy
CPT/HCPCS: 36415; 82951

== ENCOUNTER → 2022-11-21 11:00 | Outpatient (CLI) | payer OTHER, SELFPAY | PROVIDERS: Visit Provider Nurse Practitioner Obstetrics & Gynecology | DX: O36.60X0 Maternal care for excessive fetal growth, unspecified trimester, not applicable or unspecified (principal); Z34.90 Encounter for supervision of normal pregnancy, unspecified, unspecified trimester | CPT/HCPCS: 86403 ==

== ENCOUNTER → 2022-11-21 14:11 | Outpatient (CLI) | payer OTHER, SELFPAY ==
--- NOTE | 2022-11-21 14:11 | US_ITS ---
FINAL REPORT CLINICAL HISTORY: lga FINDINGS: There is a single live intrauterine gestation. Presentation is cephalic. The cervix is closed and measures 2.7 cm. Placenta is posterior, grade 1. Cardiac activity is confirmed at 140 bpm. Fetus is active. Three-vessel cord with satisfactory umbilical cord insertion. Four-chamber heart is noted. ABDOMEN: Both kidneys are unremarkable. Stomach is unremarkable. NOE: 10.3 cm MEASUREMENTS: ULTRASOUND AGE: 35 weeks 2 days. GESTATION AGE: 35 weeks 6 days. ESTIMATED WEIGHT: 2486 g GROWTH PERCENTILE: 20 BPD: 8.87 cm corresponding to 36 weeks 0 days. OFD: 10.89 cm corresponding to 35 weeks 0 days. HC: 31.2 cm corresponding to 35 weeks 0 days. AC: 29.9 cm corresponding to 34 weeks 0 days. FL: 6.94 cm corresponding to 35 weeks 5 days. HC/AC: 1.04 CI: 81% FL/BPD: 78% FL/AC: 23% BREATHIN MOVEMENT: 2 TONE: 2 FLUID VOLUME: 2 BPP SCORE: 8 IMPRESSION: Single living IUP with an ultrasound age of 35 weeks 2 days. BPP SCORE: 8/8 Reviewed, Interpreted and Dictated by Garrett Liu III, MD Transcribed by Linnea Nair Authenticated and [facility]
== END ==
PROVIDERS: PCP Internal Medicine Adolescent Medicine; Visit Provider Nurse Practitioner Obstetrics & Gynecology
DX: O36.60X0 Maternal care for excessive fetal growth, unspecified trimester, not applicable or unspecified (principal)
CPT/HCPCS: 76816; 76819

== ENCOUNTER 2022-12-09 09:49 | Inpatient (IN) | payer OTHER, SELFPAY ==
[2022-12-09] VITALS (9 sets, daily range): BP systolic 117–139; BP diastolic 56–89; PULSE 67–91; RESP 16–21; TEMP 36.1–36.8; O2SAT 97–100; BMI 30.2
[2022-12-09 04:51] LABS: Microscopic, Urine URINE MICROSCOPIC (MICROSCOPIC)
[2022-12-09 04:52] LABS: Appearance,Urine CLEAR (Clear); Bilirubin,Urine Negative (Negative); Blood, Urine 3+ (Negative); Color,Urine YELLOW (Yellow); Glucose,Urine (UA) Negative (Negative); Ketones,Urine Negative (Negative); Leukocyte Esterase,Urine Negative (Negative); Nitrate,Urine Negative (Negative); PH,Urine 6.5 (5.0-8.5); Protein,Urine Negative (Negative); Urobilinogen,Urine 0.2 EU/dl (0.2)
[2022-12-09 05:04] LABS: Amphetamine/Metha Screen,Urine Negative ng/ml (<1000); Barbiturates Screen,Urine Negative ng/ml (<200)
[2022-12-09 05:05] LABS: Benzodiazepines Screen,Urine Negative ng/ml (<200); Cannabinoid Screen,Urine Negative ng/ml (<50)
[2022-12-09 05:06] LABS: Cocaine Screen,Urine Negative ng/ml (<300)
[2022-12-09 05:07] LABS: Methadone Screen,Urine Negative ng/ml (<300); Phencyclidine Screen,Urine Negative ng/ml (<25)
[2022-12-09 05:08] LABS: Amorphous Sediment,Urine Trace /lpf; Bacteria,Urine Trace /lpf; Opiate Screen,Urine Negative ng/ml (<300); WBC,Urine Occasional #/hpf (0-3)
[2022-12-09 05:54] LABS: Basophils % 0.2 % (0.1-2.0); Chloride 104 mmol/L (98-107); Eosinophils # 0.1 K/mm3 (0.0-0.4); Eosinophils % 1.2 % (0.1-12.0); Hematocrit 36.5 % (37.0-47.0); Hemoglobin 11.9 g/dL (12.2-16.2); Lymphocytes # 1.9 K/mm3 (0.7-4.5); Lymphocytes % 19.4 % (10-50); Mean Corpuscular HGB Conc 32.7 g/dL (31.8-35.4); Mean Corpuscular Hemoglobin 28.4 pg (27.0-31.2); Mean Corpuscular Volume 86.9 fl (81-99); Mean Platelet Volume 9.2 fl (7.4-10.4); Monocytes # 0.7 K/mm3 (0.1-1.0); Neutrophils # 7.1 K/mm3 (1.8-7.8); Neutrophils % 72.2 % (37.0-80.0); Platelet Count 198 K/mm3 (142-424); Potassium 3.6 mmoL/L (3.5-5.1); Red Cell Distribution Width 15.9 % (11.5-17.5); Sodium 137 mmol/L (136-145); White Blood Count 9.8 K/mm3 (4.8-10.8)
[2022-12-09 05:57] LABS: Alanine Aminotransferase 28 U/L (12-78); Albumin Level 3.5 g/dl (3.5-5.0); Albumin/Globulin Ratio 1.2 (1.1-1.8); Alkaline Phosphatase 91 U/L (38-126); Anion Gap 14.6 mEq/L (5-15); Aspartate Amino Transferase 30 U/L (14-36); Blood Urea Nitrogen 6 mg/dl (7-17); Carbon Dioxide 22 mmol/L (22.0-30.0); Creatinine Clearance Estimated 276 mL/min (50-200); Estimated Glomerular Filt Rate 198 ml/min (>60); GFR (African American) 239 ML/MIN (>60); Total Protein,Serum 6.5 g/dl (6.3-8.2)
[2022-12-09 05:58] LABS: Glucose 106 mg/dl (74-100)
[2022-12-09 06:14] LABS: Bilirubin,Total < 0.1 mg/dl (0.2-1.3)
--- NOTE | 2022-12-09 08:40 | PC.NURSE ---
08 - notified by Nedra Mcneal RN to page OR team and general surgeon to assist with procedure at 1100; casting machine operator notified [phone] - Subhash returned call, Tyesha returned call [phone] - Latha returned call [phone] - Dr Meredith paged [phone] - Dr Meredith returned call
[2022-12-09 08:44] LABS: Coronavirus 19, PCR Not Detected (NotDetected); Influenza A, PCR Not Detected (NotDetected); Influenza B, PCR Not Detected (NotDetected)
--- NOTE | 2022-12-09 08:45 | EXP.ANES.CKL ---
[facility] [place] Disclaimer: The information contained in this section may have been updated after the patient was seen, as this information can be updated by other users. 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 Anxiety Surgical History Hx of section Social History Smoking Status: Never smoker alcohol intake: never substance use type: denies use current occupational status: employed Travel in the last 8 weeks: None [facility] Anesthesia Checklist Patient Identification Patient Identification: Arm Band and Verbal (Name & ) Structural Data Admitted From: Inpatient Planned Operative Procedure/s: C/S Consent for Planned Operative Procedure(s) Verified: Yes NPO Status Verified Time NPO: 00:00 Chart Verification Results Verified: CBC and BMP Additional verifications Patient : Yes Anesthesia Reactions: No Hx Blood Transfusions: No Blood Transfusion Reaction: No Airway Assessment C-Spine Mobility Assessed: Yes TMJ Mobility Assessed: Yes Dentition: Good Dentition Neurological Assessment Level of Consciousness: Awake Hx Seizures: No Numbness or tingling in extremities: No Anesthesia Plan Anesthesia Risk discussed: Yes Anesthesia Plan: Verified ASA Class: II Anesthesia Type: Spinal
--- NOTE | 2022-12-09 09:05 | PC.NURSE ---
Or team notified that procedure has been changed to 1138
--- NOTE | 2022-12-09 09:10 | HMH.PHAINT1 ---
Pharmacy Intervention Comments: MEDICATION RECONCILIATION COMPLETE USING EXTERNAL PHARMACY FILL HISTORY AND MOST RECENT OB OFFICE VISIT (12/06/2022)
--- NOTE | 2022-12-09 09:34 | EXP.HP ---
History of Present Illness *Admission Date: 12/09/22 *Reason for visit:: vaginal bleeding *History of present illness: 22 yo @ 38 09/11 She presented to OB triage with complaint of vaginal bleeding and cramping New onset bleeding today; bright red in color with small clots present + cramping today She denies any history of leakage of fluid, fever, unusual vaginal discharge or abdominal pain She reports normal movement She was having regular contractions on the tocometer and cervix was 1cm dilated, with evidence of bright red blood on exam glove monitoring was reassuring with no heart rate decelerations She has a history of 2 previous c sections and was scheduled for delivery by repeat CS in 4 days In light of the regular contractions and vaginal bleeding, she was admitted for delivery has been uncomplicated Her care has been at [facility] with Dr. Hill Mild anemia with Hgb 11.9 She had a failed 1hr GTT but passed 3hr GTT otherwise uncomplicated Ultrasound on 11/21 showed EFW at 20% and NOE 10, BPP 02/12 [facility] Disclaimer: The information contained in this section may have been updated after the patient was seen, as this information can be updated by other users. 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 Anxiety Surgical History Hx of section Social History Smoking Status: Never smoker alcohol intake: never substance use type: denies use current occupational status: employed Travel in the last 8 weeks: None Review of Systems Constitutional Constitutional: Reports system reviewed and no additional complaints, except as documented and Denies headache(s) ENT Ears, Nose, Mouth, and Throat: Denies headache(s) *Genitourinary Genitourinary: Reports abnormal vaginal bleeding and Reports other (+ contractions) *Neurologic Neurologic: Denies headache(s) and Denies other visual disturbances Meds Home Medications and Allergies Home Medications Medication Instructions Recorded Confirmed Type prenat.vits,sfoia,biy-qfdv-giaye 1 tab PO DAILY Supplement #30 tabs 05/07/22 12/09/22 Rx ferrous sulfate 325 mg (65 mg 325 mg PO DAILY Supplement 12/09/22 12/09/22 History iron) tablet,delayed release New Prescriptions to Start Prescriptions: Allergies Allergy/AdvReac Type Severity Reaction Status Date / Time chlorpheniramine Allergy Mild Verified 12/06/22 10:20 dextromethorphan Allergy Mild Verified 12/06/22 10:20 phenylephrine Allergy Mild Verified 12/06/22 10:20 Exam Data for Last 24 hours Vital signs and Labs for Last 24 Hours: Temp Pulse Resp BP Pulse Ox 98.1 F 91 H 17 138/81 98 12/09/22 04:51 12/09/22 04:51 12/09/22 04:51 12/09/22 04:51 12/09/22 04:51 Laboratory Results - last 24 hr 12/09/22 04:40: Urine Color Yellow, Urine Appearance Clear, Urine pH 6.5, Ur Specific [place] 1.010, Urine Protein Negative, Urine Glucose (UA) Negative, Urine Ketones Negative, Urine Blood 3+, Urine Nitrate Negative, Urine Bilirubin Negative, Urine Urobilinogen 0.2, Ur Leukocyte Esterase Negative, Urine RBC 3-5, Urine WBC Occasional, Ur Squamous Epith Cells 5-10, Amorphous Sediment Trace, Urine Bacteria Trace 12/09/22 04:40: Urine Opiates Screen Negative, Urine Methadone Screen Negative, Ur Barbituates Screen Negative, Ur Phencyclidine Scrn Negative, Ur Amphetamines Screen Negative, U Benzodiazepines Scrn Negative, Urine Cocaine Screen Negative, U Marijuana (THC) Screen Negative 12/09/22 05:30: WBC 9.8, RBC 4.20, Hgb 11.9 L, Hct 36.5 L, MCV 86.9, MCH 28.4, MCHC 32.7, RDW 15.9, Plt Count 198, MPV 9.2, Neut % (Auto) 72.2, Lymph % (Auto) 19.4, [place] % (Auto) 7.0, Eos % (Auto) 1.2, Baso % (Auto) 0.2, Neut # (Auto) 7.1, Lymph # (Auto) 1.9, [place] # (Auto) 0.7, Eos # (Auto) 0.1, Baso # (Auto) 0.0 12/09/22 05:30: Sodium 137, [place]
[2022-12-09 12:26] LABS: Cord Blood PH 7.27 (7.35-7.45)
--- NOTE | 2022-12-09 13:27 | P.PNANES_ITS ---
[facility] Anesthesia Record Part I Anesthesia Record I Intake, IV Amount: 1,800 Estimated blood loss (mL): 700 Urine output (mL): 400 Blood Pressure: 132/83 SaO2: 99 Pulse Rate: 69 Respiratory Rate: 21 Temperature: 97 F Patient is:: Awake Stable to PACU at:: 13:16
--- NOTE | 2022-12-09 13:28 | P.OP_ITS ---
Date of procedure: 12/09/22 Pre-op Diagnosis:: 1. 38 3/7 weeks gestation 2. Previous C Section 3. Vaginal bleeding of unknown etiology 4. Uterine contractions without evidence of labor Post-op Diagnosis:: 1. 38 3/7 weeks gestation 2. Previous C Section 3. Vaginal bleeding of unknown etiology 4. Uterine contractions without evidence of labor 5. Moderate pelvic/abdominal adhesions 6. Oligohydramnios Procedure performed:: Low Transverse C Section Lysis of Adhesions Surgeon:: Janeth Rob MD Freight Rate Analyst(s):: Garrett Simpson MD DELIMBER OPERATOR:: Subhash Medina Anesthesia: spinal Estimated blood loss (mL): 700 Operative findings:: Moderate abdominal/pelvic adhesions Vigorous female in vertex presentation with Apgars 8 & 9 Minimal/absent amniotic fluid noted at time of delivery of and placenta Operative note:: The patient was taken to the OR and spinal was administered without difficulty. She was prepped and draped in normal sterile fashion. A pfannenstiel skin incision was made with the scalpel through the previous scar and carried down to the fascia. The fascia was incised in the midline and sharply dissected off the rectus muscles. The muscles were in the midline and the peritoneum was entered sharply and extended bluntly. There were significant adhesions extending from the bladder to the lower and mid-uterus, which required dissec tion prior to placement of the retractor. These adhesions were taken down using both sharp and blunt dissection, without complication or bladder damage, although there was moderate oozing from the uterus. The Albino-O self retaining retractor was then placed in the abdomen and the vesico-peritoneal adhessions were further dissected in order to create a functional bladder flap. The uterus was incised in the lower uterine segment in a transverse fashion and extended bluntly. The vertex was visible without needing amniotomy, and no fluid was seen exiting the uterus at time of delivery. The infant was delivered in controlled fashion, without complication or shoulder dystocia. The infant was vigorous at and handed to awaiting broomcorn press feeder and nursing staff for evaluation after the umbilical cord was clamped and cut. Cord blood was collected and a cord segment was preserved. The placenta was manually extracted and noted to be intact, and without obvious evidence of abruption. After the placenta was delivered, there was a noticable absence of amniotic fluid, with only a total of 40cc bloody fluid in the suction canister. The patient did not have a history c/w rupture of membranes, but in fact had no visible amniotic fluid at the time of delivery. The uterus was repaired with 0-vicryl in a running/locked fashion, in 2 layers. There was moderate oozing from the uterus in the areas where peritoneal adhesions had been taken down, and this was treated with cautery, Alek and Gelfoam. Intercede was then placed over the uterus as an adhesion barrier. The peritoneum was closed with 2-0 vicryl in a running fashion. The fascia was closed with #1 vicryl in a running fashion. The subcutaneous fat was closed with 2-0 vicryl in an interrupted fashion. The skin was closed with cherrie. The patient tolerated the procedure well. Sponge, lap, needle and instrument counts were correct x 2. TAP block was placed by anesthesia following procedure. She was taken to PACU awake and in stable condition. Condition: stable Disposition: PACU Specimens:: 1. Placenta to pathology 2. Cord blood or pH Complications:: None
--- NOTE | 2022-12-09 14:20 | SUR.OPER ---
1216- Time of of viable infant. pH of cord blood 7.27
--- NOTE | 2022-12-09 14:21 | SUR.OPER ---
1216- Time of of viable infant. pH of cord blood 7.27, MD aware.
--- NOTE | 2022-12-09 14:29 | SUR.PHASEI ---
1341- Report called to OB nurse AINSLEY Bennett. 1346- Patient transported in stable condition to OB room 278 by this RN and Andres. Bed locked and left in lowest position. Patient's vital signs stable. Dressing assessed by this RN and AINSLEY Bennett with drainage from PACU outlined on dressing. Fundal massage performed by AINSLEY Bennett with this RN still present. QBL relayed to AINSLEY Bennett. Patient left in the care of AINSLEY Bennett at this time.
[2022-12-09 15:08] LABS: Microscopic,Cath URINE MICROSCOPIC (MICROSCOPIC)
[2022-12-09 15:31] LABS: Appearance,Urine/Cath CLEAR (Clear); Bilirubin,Cath Negative (Negative); Blood, Urine/Cath Negative (Negative); Color,Urine/Cath YELLOW (Yellow); Glucose,Urine/Cath (UA) Negative (Negative); Ketones,Urine/Cath 2+ (Negative); Leukocyte Esterase,Cath Negative (Negative); Nitrate,Cath Negative (Negative); PH,Urine/Cath 7.5 (5.0-8.5); Protein,Urine/Cath Negative (Negative); Specific Gravity, Urine/Cath 1.015 (1.005-1.030)
[2022-12-09 16:20] LABS: WBC,Urine/Cath Occasional #/hpf (0-3)
[2022-12-10] VITALS (7 sets, daily range): BP systolic 109–139; BP diastolic 60–81; PULSE 70–94; RESP 17–20; TEMP 36.1–36.9; O2SAT 98–100
[2022-12-10 07:02] LABS: Hematocrit 36.9 % (37.0-47.0); Hemoglobin 11.9 g/dL (12.2-16.2)
--- NOTE | 2022-12-10 07:49 | EXP.ANES.II ---
[facility] Anesthesia Record Part II Anesthesia Record Part II Discharge Time: 13:46 Destination: Obstetric PACU nurse assessment reviewed?: Yes Patient Condition:: Good Anesthesia Complications:: None Swallowing reflex intact?: Yes Cyanosis?: No Blood Pressure: 139/81 Pulse Rate: 70 Temperature: 97 F Mental Status: Alert & Oriented Pain level:: 3 Nausea and/or vomitting:: None Intake, IV Amount: 0
--- NOTE | 2022-12-10 15:30 | P.PN_ITS ---
Subjective *Date: 12/10/22 *Time: 15:30 Interval history: She is doing very well 1 day post section. She is eating and drinking and ambulating. Her hemoglobin is stable. She is breast-feeding. Medical Exam Vital signs and Labs for Last 24 Hours: Vital Signs Temp Pulse Pulse Resp BP BP Pulse Ox 12/10/22 08:30 98.2 F 89 20 109/60 L 98 12/10/22 04:42 98.3 F 85 17 116/63 98 12/10/22 00:27 97.9 F 88 17 129/64 100 12/09/22 19:54 98.3 F 86 18 123/73 98 12/09/22 16:00 86 16 117/56 L 100 12/10/22 07:50 97 F L 70 139/81 Intake and Output 12/10/22 12/10/22 12/10/22 03:59 11:59 19:59 Intake Total 0 / 1800 Balance 0 / 0 Intake: Intake, Total IV Amount 0 / 1800 Laboratory Results - last 24 hr 12/09/22 05:30: Blood Type O Positive, Antibody Screen Negative, Crossmatch (AHG) See Detail 12/09/22 11:45: Urine Color Yellow, Urine Appearance Clear, Urine pH 7.5, Ur Specific [place] 1.015, Urine Protein Negative, Urine Glucose (UA) Negative, Urine Ketones 2+, Urine Blood Negative, Urine Nitrate Negative, Urine Bilirubin Negative, Urine Urobilinogen 1.0, Ur Leukocyte Esterase Negative, Urine RBC None, Urine WBC Occasional, Ur Squamous Epith Cells None, Urine Bacteria None 12/10/22 06:50: Hgb 11.9 L, Hct 36.9 L I & O for Labs for Last 24 Hours: Intake & Output 12/08/22 12/09/22 12/10/22 12/11/22 11:59 11:59 11:59 11:59 Intake Total 1800 / 1800 Output Total 1800 / 1800 Balance 0 / 0 Weight 176 lb Head: Present atraumatic ENT: Present normal exam Neck: Present normal inspection Respiratory: Present normal respiratory effort GI: Present soft; Absent distention Assessment and Plan *Assessment and plan (1) History of section, low transverse: Status: Acute Category: Surgical Code(s): Z98.891 - History of uterine scar from previous surgery (2) delivery delivered: Status: Acute Category: Medical Code(s): O82 - Encounter for delivery without indication Plan She is doing very well today. She is eating and drinking and ambulating. Her pain is reasonably well controlled. She is just taking Tylenol and ibuprofen. She did have a T AP block. She is breast-feeding. We will plan to send her home tomorrow.
[2022-12-11 04:43] VITALS: BP 118/74; PULSE 77; RESP 17; TEMP 36.7; O2SAT 99
--- NOTE | 2022-12-11 07:28 | EXP.DC.SUM ---
General Admission date:: 12/09/22 Discharge date: 12/11/22 HPI HPI HPI: 22 yo @ 38 09/11 She presented to OB triage with complaint of vaginal bleeding and cramping New onset bleeding today; bright red in color with small clots present + cramping today She denies any history of leakage of fluid, fever, unusual vaginal discharge or abdominal pain She reports normal movement She was having regular contractions on the tocometer and cervix was 1cm dilated, with evidence of bright red blood on exam glove monitoring was reassuring with no heart rate decelerations She has a history of 2 previous c sections and was scheduled for delivery by repeat CS in 4 days In light of the regular contractions and vaginal bleeding, she was admitted for delivery has been uncomplicated Her care has been at [facility] with Dr. Hill Mild anemia with Hgb 11.9 She had a failed 1hr GTT but passed 3hr GTT otherwise uncomplicated Ultrasound on 11/21 showed EFW at 20% and NOE 10, BPP / Hospital Course Hospital Course Hospital Course: On December 09, 2022 she underwent a repeat lower segment transverse section. She delivered a liveborn female child at 12:16 PM. The baby had Apgars of 8 at 1 minute and 9 at 5 minutes. She weighed 6 pounds 14 ounces and was 18 inches long. She has done well and has remained afebrile throughout her hospitalization. She is eating and drinking and ambulating. She is breast-feeding. She has O+ blood, she is rubella immune and was group B streptococcus negative. 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 Cool. She will be discharged home to follow-up with me in approximately 2 weeks time. She will continue with her vitamins and iron. She is just taking [id number] analgesics and did not want any narcotics. Her condition on discharge is stable and improved. Exam Data for Last 24 hours Vital signs and Labs for Last 24 Hours: Temp Pulse Resp BP Pulse Ox 98.1 F 77 17 118/74 99 12/11/22 04:43 12/11/22 04:43 12/11/22 04:43 12/11/22 04:43 12/11/22 04:43 I & O for Last 24 hours: Intake & Output 12/08/22 12/09/22 12/10/22 12/11/22 11:59 11:59 11:59 11:59 Intake Total 1800 / 1800 Output Total 1800 / 1800 Balance 0 / 0 Weight 176 lb Constitutional Constitutional: no acute distress *Routine HEENT Exam Head: Present normocephalic ENT: Present mucous membranes moist *Routine Respiratory Exam Respiratory: Present normal respiratory effort DS: Diagnosis Discharge Diagnosis (1) History of section, low transverse: Status: Acute Code(s): Z98.891 - History of uterine scar from previous surgery (2) delivery delivered: Status: Acute Code(s): O82 - Encounter for delivery without indication Meds Home Medications and Allergies Home Medications Medication Instructions Recorded Confirmed Type prenat.vits,sofia,jkr-tlav-zoyqu 1 tab PO DAILY Supplement #30 tabs 05/07/22 12/09/22 Rx ferrous sulfate 325 mg (65 mg 325 mg PO DAILY Supplement 12/09/22 12/09/22 History iron) tablet,delayed release New Prescriptions to Start Prescriptions: Allergies Allergy/AdvReac Type Severity Reaction Status Date / Time chlorpheniramine Allergy Mild Verified 12/06/22 10:20 dextromethorphan Allergy Mild Verified 12/06/22 10:20 phenylephrine Allergy Mild Verified 12/06/22 10:20 Discharge Plan Disposition Patient Disposition: Home, Self-Care Discharge Order Discharge Orders: Discharge Order (Routine); Ordered 12/11/22 Ordered By: Aron Hill Follow up Plan Prescriptions/Medication Reconciliation: Continued prenat.vits,sofia,[id number]-[id number]-[id number] Tablet 1 tab PO DAILY Qty: 30 11RF ferrous sulfate 325 mg (65 mg iron) tablet,delayed release (DR/EC) 325 mg PO DAILY Problem Reconciliation Problems Reviewed?: Yes Patient Discharge Instructions ACTIVITY: No heavy liftin
== END 2022-12-11 14:20 | disposition home or self-care (01) | DRG 787 ==
LOC: OBOUT 09:50 → OB 09:50
PROVIDERS: Admitting Provider Obstetrics & Gynecology; PCP Internal Medicine Adolescent Medicine; Referring Provider Nurse Practitioner Obstetrics & Gynecology; Visit Provider Obstetrics & Gynecology
PROC: 10D00Z1 Extraction of Products of Conception, Low, Open Approach (ICD-10-PCS; CPT 59514; principal; 2022-12-09 11:00)
DX: O34.211 Maternal care for low transverse scar from previous cesarean delivery (principal); O41.03X0 Oligohydramnios, third trimester, not applicable or unspecified; Z3A.38 38 weeks gestation of pregnancy; Z37.0 Single live birth
CPT/HCPCS: 59514; 36415; 59025; 80053; 80305; 81001; 82800; 85014; 85018; 85025; 86850; 87636; 88307; 94761; 96365; C9290; C9803; G0283; J2405; U0003; U0005

== ENCOUNTER 2023-08-19 10:46 | Outpatient (CLI) | payer OTHER, SELFPAY ==
--- NOTE | 2023-08-19 10:46 | US_ITS ---
PROCEDURE: US TRANSVAGINAL CLINICAL INDICATION: iud in place COMPARISON: No exams were available for comparison FINDINGS: Transvaginal and transabdominal sonographic images of the pelvis were obtained. UTERUS: 8.8 cm x 7.6 cmx 4.8 cm anteverted with a combined endometrial thickness of 6mm. A scar is seen. An IUD is present within the uterine cavity in the correct position. LEFT OVARY: 2.0cmx1.6 cmx1.2cm with a volume of 2ml. Left ovary is seen transabdominally and appears Normal in shape and size. RIGHT OVARY: 3.6 cmx 2.5 cmx1.5 cm with a volume of 7.2ml. There are several small follicles on the right ovary. Both ovaries are seen and appear normal. Doppler flow to both ovaries are seen. There is no fluid in the cul-de-sac. IMPRESSION: 1. Anteverted uterus normal in shape and size. 2. An IUD is seen within the endometrial cavity in the correct position. 3. Both ovaries are seen and appear normal. 4. No fluid in the cul-de-sac. Dictated by: Aron Hill MD 08/19/2023 12:06 Aron Hill MD in OV 08/19/2023 12:06
== END 2023-08-19 23:59 ==
LOC: RAD 10:46
PROVIDERS: PCP Internal Medicine Adolescent Medicine; Visit Provider Nurse Practitioner Obstetrics & Gynecology
DX: Z97.5 Presence of (intrauterine) contraceptive device (principal)
CPT/HCPCS: 76830

== ENCOUNTER 2023-09-21 09:27 | Emergency (ER) | payer OTHER, SELFPAY ==
[2023-09-21 09:50] VITALS: BP 116/70; PULSE 101; RESP 18; TEMP 37.1; O2SAT 97; BMI 26.9
--- NOTE | 2023-09-21 10:06 | ED_ITS ---
Discharge Plan Disposition Patient Disposition: Home, Self-Care Condition: Good Prescriptions Prescriptions: New azithromycin 250 mg tablet 250 mg PO DIRECTED Qty: 6 0RF Rx Instructions: Take two (2) tablets on day #1, then one (1) tablet day #2 thru #5 No Action Mirena 21 mcg/24 hours (8 yrs) 52 mg intrauterine device 1 device intrauterine ONCE estradiol [Estrace] 2 mg tablet 2 mg PO DAILY Qty: 30 2RF Referrals Follow up/Referrals: Evelio Storm MD [Primary Care Provider] - See instructions Activity Restrictions/Add. Instructions Additional Instructions/Restrictions: Start antibiotics today be sure to take it as ordered with the full length of time although you should start feeling better in 24-48 hours. Change toothbrush and toothpaste 24-48 hours after starting antibiotics Tylenol or Motrin as needed for fever or pain Encourage fluids, water, Gatorade, Powerade, try cold fluids, popsicles, ice cream will make it feel better You are contagious for 24 hours. Avoid kissing anyone, no eating or drinking after anyone. You are contagious. Follow-up the ER for new or worsening symptoms or no noticeable improvement over the next 24-48 hours. Follow-up with PCP this week. Clinical Impressions Clinical Impression: Strep sore throat Instructions Patient Instructions: DI for Strep Throat Discharge ED Provider: Sukhi ([facility])Naeem [facility] [place] HPI General Stated complaint: sore throat, ear pain Mode of Arrival: Ambulatory Source of Information: Patient Limitations: No Limitations Time Seen by Provider: 09/21/23 10:06 Description of Symptoms (Recalled from Triage Doc. by RN): PATIENT C/O SORE THROAT, LEFT EAR PAIN, AND NAUSEA SINCE LAST NIGHT HEENT Symptoms (Recalled from RN notes): Yes Resp Symptoms (Recalled from RN notes): No Skin Symptoms (Recalled from RN notes): No MS Symptoms (Recalled from RN notes): No Functional Status (Recalled from RN notes): WNL History of Present Illness Provider Complaint: 23 yr old female presents for c/o sore throat, left ear pain and nausea that started last night Related Data Home Medications Medication Instructions Recorded Confirmed levonorgestrel 21 mcg/24 hours (8 1 device intrauterine ONCE 02/12/23 09/21/23 yrs) 52 mg intrauterine device (Mirena) Previous Rx's Medication Instructions Recorded estradiol 2 mg tablet (Estrace) 2 mg PO DAILY #30 tabs 08/20/23 azithromycin 250 mg tablet 250 mg PO DIRECTED #6 tabs 09/21/23 Allergies Allergy/AdvReac Type Severity Reaction Status Date / Time chlorpheniramine Allergy Mild Verified 08/28/23 11:19 dextromethorphan Allergy Mild Verified 08/28/23 11:19 phenylephrine Allergy Mild Verified 08/28/23 11:19 Worker's Comp Is this a Worker's Comp case?: No [facility] Disclaimer: The information contained in this section may have been updated after the patient was seen, as this information can be updated by other users. 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 OPERATOR) Smoking Status: Never smoker alcohol intake: never substance use type: denies use current occupational status: employed Travel in the last 8 weeks: None ROS Obtained: Yes All systems reviewed & no additional complaints except as do cumented Constitutional Constitutional: Reports system reviewed and no additional complaints, except as documented, Reports as per HPI, Reports body ache, Reports chills and Reports fever(s) Eyes Eyes: Reports system reviewed and no additional complaints, except as documented ENT Ears, Nose, Mouth, and Throat: Reports system reviewed and no additional complaints, except as documented, Reports as per HPI and Reports sore throat Cardiovascular Cardiovascular: Reports system reviewed and no additional complaints, except as documented Respiratory Respiratory: Reports system reviewed and no additional complaints, except as documented Musculoskeletal Musculoskeletal: Reports system reviewed and no additional complaints, except as documented Integumentary/Breasts Skin/Breast: Reports system reviewed and no additional complaints, except as documented Neurologic Neurologic: Reports system reviewed and no additional complaints, except as documented Endocrine Endocrine: Reports system reviewed and no additional complaints, except as documented Hematologic/Lymphatic Henatologic/Lymphatic: Reports system reviewed and no additional complaints, except as documented Allergic/Immunologic Allergic/Immunologic: Reports system reviewed and no additional complaints, except as documented Physical Exam General General appearance: alert and in no apparent distress Head Head exam: atraumatic Eye Eye exam: Present normal appearance and PERRL ENT ENT exam: Present mucous membranes moist and TM's normal bilaterally Expanded ENT Exam Throat exam: Present tonsillar erythema, tonsillomegaly and tonsillar exudate Respiratory Respiratory exam: Present normal lung sounds bilaterally Cardiovascular Cardiovascular exam: Present regular rate and normal rhythm Neurological Exam Neurological exam: Present alert and oriented X3 Skin Skin exam: Present warm and intact Medical Decision Making Medical Records Medical records reviewed: Yes I reviewed the patient's medical records. Juan Carlos Inquiry Pt receiving controlled substance: No Juan Carlos was queried for this patient: No Vital Signs: 09/21/23 09:50 Temperature 98.8 F Temperature Source Oral Pulse Rate [Left Brachial] 101 H Respiratory Rate 18 Blood Pressure [Left Arm] 116/70 Blood Pressure Mean [Left Arm] 85 Blood Pressure Source [Left Arm] Automatic Cuff Blood Pressure Position [Left Arm] Sitting 02 Sat by Pulse Oximetry 97 Oxygen Delivery Method Room Air Lab Data Lab results reviewed: Yes I reviewed the patient's lab results.
[2023-09-21 10:17] VITALS: BP 116/70; PULSE 101; RESP 18; TEMP 37.1; O2SAT 97
[2023-09-21 10:17] LABS: UTC Strep Screen (Rapid) Positive (Negative)
== END 2023-09-21 10:25 | disposition home or self-care (01) ==
PROVIDERS: Emergency Provider Nurse Practitioner Family; PCP Internal Medicine Adolescent Medicine
DX: J02.0 Streptococcal pharyngitis (principal); H92.02 Otalgia, left ear; R11.0 Nausea; F41.9 Anxiety disorder, unspecified
CPT/HCPCS: 87880; 99204; 99212; G0463

== ENCOUNTER 2023-11-11 14:19 | Outpatient (CLI) | payer OTHER, SELFPAY ==
--- NOTE | 2023-11-11 14:20 | US_ITS ---
PROCEDURE: US TRANSVAGINAL CLINICAL INDICATION: abnormal uterine bleeding COMPARISON: No exams were available for comparison FINDINGS: Transvaginal and transabdominal sonographic images of the pelvis were obtained. UTERUS: 8.9 cm x 5.6 cmx 4.3cm anteverted with a combined endometrial thickness of 6.1mm. An IUD is within the uterine cavity in the correct position. LEFT OVARY: 4.0 cmx1.8 cmx1.2cm with a volume of 4.8ml. RIGHT OVARY: 4.0cmx 2.3 cmx1.6 cm with a volume of 7ml. There is a follicle measuring 1.0 cm x 0.9 cm x 0.9 cm. Both ovaries are seen and appear normal. Doppler flow to both ovaries are seen. There is trace fluid in the cul-de-sac. IMPRESSION: 1. Anteverted uterus normal in shape and size. 2. There is an IUD within the uterine cavity in the correct position. 3. The right ovary appears normal and has a small follicle 1 cm in size. 4. The left ovary is seen transabdominally and appears normal. 5. Trace fluid in the cul-de-sac. Dictated by: Aron Hill MD 11/11/2023 17:02 Aron Hill MD in [place] 11/11/2023 17:02
== END 2023-11-11 23:59 | disposition home or self-care (01) ==
LOC: RAD 14:20
PROVIDERS: PCP Internal Medicine Adolescent Medicine; Visit Provider Obstetrics & Gynecology
DX: N93.9 Abnormal uterine and vaginal bleeding, unspecified (principal)
CPT/HCPCS: 76830

== ENCOUNTER 2024-03-18 08:12 | Emergency (ER) | payer OTHER, SELFPAY ==
[2024-03-18 08:31] VITALS: BP 128/88; PULSE 92; RESP 20; TEMP 36.7; O2SAT 98; BMI 26.9
--- NOTE | 2024-03-18 08:31 | ED_ITS ---
Discharge Plan Disposition Patient Disposition: Home, Self-Care Condition: Good Prescriptions Prescriptions: New amoxicillin 875 mg tablet 875 mg PO Q12H Qty: 20 0RF prednisone 10 mg tablet 10 mg PO BID 3 Days Qty: 6 0RF ondansetron 4 mg Tablet,Disintegrating 4 mg PO Q8H PRN (Reason: Nausea) Qty: 12 0RF No Action etonogestrel-ethinyl estradiol [NuvaRing] 0.12-0.015 mg/24 hr ring 1 vag ring vaginal Q4W Qty: 3 4RF Rx Instructions: leave in place for 3 weeks of a 4-week cycle Referrals Follow up/Referrals: Evelio Storm MD [Primary Care Provider] - See instructions Activity Restrictions/Add. Instructions Additional Instructions/Restrictions: Drink plenty of fluids. Take tylenol or ibuprofen for pain or fever. Take the medications as directed. Follow up with your regular doctor. GO TO THE ER FOR ANY WORSENING SYMPTOMS Throw your tooth brush away and get a new one. Clinical Impressions Clinical Impression: Strep sore throat Stand Alone Forms Stand Alone Forms: Work/School Release Instructions Patient Instructions: Strep Throat, DI for Strep Throat Print Language Print Language: [place] Discharge ED Provider: Gregorio Cortez [facility] General Stated complaint: sore throat, headache Time Seen by Provider: 03/18/24 08:31 History of Present Illness Provider Complaint: She states that for the past 2 days she has had sore throat, chills, body aches and low grade fever. Related Data Previous Rx's ?Medication ?Instructions ?Recorded etonogestrel 0.12 mg-ethinyl 1 vag ring vaginal Q4W #3 ea 12/23/23 estradiol 0.015 mg/24 hr vaginal ring (NuvaRing) amoxicillin 875 mg tablet 875 mg PO Q12H #20 tabs 03/18/24 ondansetron 4 mg disintegrating 4 mg PO Q8H PRN Nausea #12 tabs 03/18/24 tablet prednisone 10 mg tablet 10 mg PO BID 3 days #6 tabs 03/18/24 Allergies Allergy/AdvReac Type Severity Reaction Status Date / Time chlorpheniramine Allergy Mild Verified 12/23/23 14:28 dextromethorphan Allergy Mild Verified 12/23/23 14:28 phenylephrine Allergy Mild Verified 12/23/23 14:28 [facility] Disclaimer: The information contained in this section may have been updated after the patient was seen, as this information can be updated by other users. 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 Abnormal uterine bleeding Anxiety Surgical History Hx of section Family History Other Anemia Asthma Cancer Coronary artery disease Diabetes Heart attack Hyperlipidemia Hypertension Stroke Substance abuse Social History Smoking Status: Never smoker alcohol intake: never substance use type: denies use current occupational status: employed Travel in the last 8 weeks: None ROS Obtained: Yes All systems reviewed & no additional complaints except as documented Constitutional Constitutional: Reports chills and Reports fever(s) Eyes Eyes: Denies eye discharge ENT Ears, Nose, Mouth, and Throat: Reports as per HPI Cardiovascular Cardiovascular: Denies chest pain Respiratory Respiratory: Denies chest congestion and Reports cough Gastrointestinal Gastrointestingal: Reports nausea; Denies abdominal pain, constipation, cramping, diarrhea or vomiting Musculoskeletal Musculoskeletal: Denies arthralgias Integumentary/Breasts Skin/Breast: Denies rash Neurologic Neurologic: Denies paresthesias Physical Exam General General appearance: alert and in no apparent distress Head Head exam: atraumatic, normocephalic and normal inspection Eye Eye exam: Present normal appearance, PERRL and EOMI ENT ENT exam: Present mucous membranes moist and normal external ear exam Expanded ENT Exam TM/Canal exam: Bilateral TM: erythema and bulging Nose exam: Absent sinus tenderness Mouth exam: Present normal external inspection; Absent drooling Teeth exam: Present normal inspection Throat exam: Present tonsillar erythema, tonsillomegaly and tonsillar exudate Neck Neck exam: Present normal inspection, full ROM and trachea midline; Absent tenderness, meningismus or lymphadenopathy Chest Chest inspection: Present normal inspection and symmetric chest wall rise; Absent tenderness Respiratory Respiratory exam: Present normal lung sounds bilaterally; Absent respiratory distress, wheezes, stridor or accessory muscle use Cardiovascular Cardiovascular exam: Present regular rate and normal rhythm; Absent systolic murmur or diastolic murmur Abdominal Exam Abdominal exam: Present soft and normal bowel sounds; Absent distention, tenderness, guarding, rebound or rigidity Extremities Exam Extremities exam: Present normal inspection and normal capillary refill; Absent calf tenderness Back Exam Back exam: Present normal inspection and full ROM; Absent tenderness, CVA tenderness (R) or CVA tenderness (L) Neurological Exam Neurological exam: Present alert, oriented X3 and CN II-XII intact Psychiatric Psychiatric exam: Present normal affect and normal mood Skin Skin exam: Present warm, dry, intact and normal color Medical Decision Making Medical Records Medical records reviewed: No I reviewed the patient's medical records. Juan [place] Inquiry Pt receiving controlled substance: No Lab Data Lab results reviewed: Yes I reviewed the patient's lab results.
[2024-03-18 08:34] LABS: UTC Strep Screen (Rapid) Positive (Negative)
[2024-03-18 09:05] VITALS: BP 128/88; PULSE 92; RESP 20; TEMP 36.7; O2SAT 98
== END 2024-03-18 09:07 | disposition home or self-care (01) ==
PROVIDERS: Emergency Provider Nurse Practitioner Family; PCP Internal Medicine Adolescent Medicine
DX: J02.0 Streptococcal pharyngitis (principal); R50.9 Fever, unspecified; R07.0 Pain in throat
CPT/HCPCS: 87880; 99212; 99214; G0463